=== PATIENT | female | born 1950 | race Caucasian/White ===

== ENCOUNTER 2022-05-11 18:20 | Inpatient (IN) ==
--- NOTE | 2022-05-11 18:52 | XRay Report ---
XR hip LT 2V w pelvis CLINICAL HISTORY: l hip and pelvis pain. Status post fall COMPARISON STUDY: No previous studies for comparison. TECHNIQUE: AP pelvis and 2 left hip views FINDINGS: Bones: The bones are osteopenic. There is no evidence for an acute fracture or dislocation. There is no lytic or blastic lesion. Joints: There is mild to moderate narrowing of the left hip joint space. Total hip replacement is pre sent on the right. The bones are in anatomic alignment. Soft tissues: There is no focal soft tissue abnormality. There is no radiopaque foreign body. IMPRESSION: 1. No acute osseous pathology. 2. 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 ACT 112: Negative or not required by law. Electronically signed by: Raymon Young M.D. 05/11/2022 6:51 PM
--- NOTE | 2022-05-11 19:16 | Emergency Department Note ---
Impression & Plan Hip Injury, Hip pain ED Provider Note NAME: LARA GOLDBERG AGE: 71 SEX: F : 1950 ARRIVES VIA: Ambulance INFORMANT: Patient ED PROVIDER(S): Tyrone Ro DO CHIEF COMPLAINT: Left hip pain HPI: Patient is a 71-year-old female who presents ER for above-stated complaint. Patient was cleaning the siding and was trying to get mold off when she lost her balance and fell onto her left hip. She did not hit her head or neck. No chest pain or belly pain. No other extremity pain. Pain is focal in that left hip. She is unable to stand or walk on it. Currently 3 out of 10. Tingling or numbness. ROS: See above HPI for pertinent positives & negatives. A total of 10 systems reviewed and were otherwise negative. PAST MEDICAL HISTORY:See Below PAST SURGICAL HISTORY:See Below FAMILY HISTORY:See Below SOCIAL HISTORY:See Below HOME MEDICATIONS:See Below ALLERGIES:See Below VITALS:See Below PHYSICAL EXAMINATION: GENERAL: alert, well appearing, well nourished, no distress, non-toxic HEAD: normal cephalic, atraumatic EYE EXAM: normal conjunctiva, PERRL and EOM's grossly intact OROPHARYNX: no exudate, no erythema, lips, buccal mucosa, and tongue normal and mucous membranes are moist NECK: supple, no nuchal rigidity, no adenopathy, non-tender CHEST: stable to compression anteriorly and posteriorly LUNGS: clear to auscultation. Normal chest wall mechanics HEART: no murmurs, S1 normal and S2 normal ABDOMEN: abdomen soft, non-tender, normo-active bowel sounds, no masses, no rebound or guarding. PELVIS: stable to compression anteriorly and posteriorly and over the left hip/pelvis on to palpation. BACK: Back is symmetrical on inspection and there is no deformity, no midline tenderness, no CVA tenderness. UPPER EXTREMITIES: full active and passive range of motion of all joints without tenderness to palpation LOWER EXTREMITIES: full active and passive range of motion of all joints without tenderness to palpation NEURO EXAM: Normal sensorium, cranial nerves II-XII grossly intact, normal speech, no gross weakness of arms, no gross weakness of legs. GCS: 15. MEDICAL DECISION MAKING: [Provider summary] Triage Nursing notes reviewed. Limited review of prior medical records performed Vital Signs: reviewed and remarkable for HTN Differential diagnosis: Differential diagnoses include major intracranial, cervical, spinal, thoracic, abdominal, pelvic and neurologic injury. Fracture, contusion, sprain, strain, laceration, abrasions included as well. ER treatment provided: See below Diagnostics interpreted by me: ECG: [none] Cardiac Monitoring: An order was placed for continuous cardiac monitoring. The monitor shows a rate of [] with [] rhythm. Laboratory studies: [As stated above and show below.] Imaging studies: [See below] Consultation(s): [none] Procedures: [none] [PDMP:reviewed and no issues] Critical Care: [None] Past Med/Surg History Social History Smoking Status: Never smoker Preferred Language: Lithuanian Feels Safe at Home: Yes Allergies Allergies Allergy/AdvReac Type Severity Reaction Status Date / Time No Known Allergies Allergy Verified 03/12/20 12:16 TAPE Allergy Unknown Unknown Uncoded 03/12/20 12:16 Home Meds Home Medications Medication Instructions Recorded Confirmed levothyroxine 88 mcg tablet 88 mcg PO QAM 03/12/20 03/12/20 naproxen sodium 220 mg tablet 220 mg PO Q12H PRN Pain 03/12/20 03/12/20 (Aleve) omeprazole 20 mg capsule,delayed 20 mg PO QAM 03/12/20 03/12/20 release ondansetron HCl 4 mg tablet 4 mg PO Q6H PRN Nausea 03/12/20 03/12/20 Previous Rx's Medication Instructions Recorded artificial tears with lanolin eye 1 appln ophthalmic (eye) Q6H PRN 03/12/20 ointment dry eyes #3.5 grams Results & Data (ED) Vital Signs Vital Signs - 24 hr 05/11/22 18:09 Temperature 37.1 C Temperature Source Oral Pulse Rate 65 Respiratory Rate 16 Blood Pressure 199/118 H Blood Pressure Mean 145 Pulse Oximetry 94 Sepsis Recent Fever Within 48 Hours No Sepsis New/Unexplained Change in Mental Status No Sepsis Action Taken by Nursing No Action Required Imaging Data Radiologist's Impression: Hip/Pelvis X-Ray 05/11/22 18:31 XR hip LT 2V w pelvis CLINICAL HISTORY: l hip and pelvis pain. Status post fall COMPARISON STUDY: No previous studies for comparison. TECHNIQUE: AP pelvis and 2 left hip views FINDINGS: Bones: The bones are osteopenic. There is no evidence for an acute fracture or dislocation. There is no lytic or blastic lesion. Joints: There is mild to moderate narrowing of the left hip joint space. Total hip replacement is present on the right. The bones are in anatomic alignment. Soft tissues: There is no focal soft tissue abnormality. There is no radiopaque foreign body. IMPRESSION: 1. No acute osseous pathology. 2. 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 ACT 112: Negative or not required by law. Electronically signed by: Raymon Young M.D. 05/11/2022 6:51 PM Discharge Plan Visit Data Chief Complaint: Hip Pain ED Provider: Tyrone Ro Discharge Problem: Hip Injury, Hip pain Discharge Instructions Krames/Other Patient Handouts: ED Mechanical Fall, ED Hip Contusion Activity Restrictions/Additional Instructions: Please follow up with your primary care doctor with in the next 24 hours. Any worsening of your symptoms, please return to the ED immediately. This includes any fevers greater than 100.4, worsening pain, chest pain, shortness breath, persistent nausea, vomiting, unable to eat or drink, or any other concerning signs or symptoms from your standpoint. You were found to have a blood pressure greater than 120 systolic over 90 diastolic. Due to the new Medicare guidelines, we are now recommending that you follow up with your primary care doctor in regards to this elevated blood pressure. Take Tylenol or Motrin as needed for pain. Forms [facility] Prescriptions: No Action ondansetron HCl 4 mg tablet 4 mg PO Q6H PRN (Reason: Nausea) levothyroxine 88 mcg tablet 88 mcg PO QAM naproxen sodium [Aleve] 220 mg Tablet 220 mg PO Q12H PRN (Reason: Pain) omeprazole 20 mg capsule,delayed release(DR/EC) 20 mg PO QAM artificial tears with lanolin Ointment 1 appln OP Q6H PRN (Reason: dry eyes) Qty: 3.5 0RF Referrals Referrals: Ned Donovan MD [Primary Care Provider] -
[2022-05-11] MEDS ORDERED: MoRPHine SULFATE 2 MG/ML CARP IV PRN (19:41)
[2022-05-11] MEDS ORDERED: MoRPHine SULFATE 4 MG/ML 1 ML CARP\\VIAL IV PRN ×2 (19:41→21:00)
--- NOTE | 2022-05-11 19:55 | CT Scan Report ---
CT pelvis wo con, CT hip LT wo con CLINICAL HISTORY: Status post fall with left hip pain. Previous right hip replacement 20 years ago. COMPARISON: None CT DOSE: 746.54 mGy.cm TECHNIQUE: Standard CT of the pelvis and left hip is performed without IV contrast. Multiplanar recon struction is performed. A dose lowering technique was utilized adhering to the principles of ALARA. FINDINGS: Bones: The bones are osteopenic. There is evidence for a nondisplaced fracture of the inferior ischia l pubic ramus on the left. There is no other evidence for an acute fracture or dislocation. There are no lytic or blastic lesions. Joints: There is moderate narrowing of the left hip joint space with secondary degenerative changes. Intact total hip replacement is present on the right. The bones are in anatomic alignment. Soft tissues: There is no focal soft tissue swelling. Calcified uterine fibroid is present. There are no focal fluid collections. IMPRESSION: 1. Osteopenia with evidence for a nondisplaced fracture of the inferior ischial pubic ramus on the le ft. 2. Osteoarthritis of the left hip. ACT 112: Negative or not required by law. Electronically signed by: Raymon Young M.D. 05/11/2022 7:52 PM
[2022-05-11 20:09] LABS: Basophils # (auto) 0.06 K/uL (0-0.2); Basophils % (auto) 0.3 %; Eosinophils # (auto) 0.04 K/uL (0-0.50); Eosinophils % (auto) 0.2 %; Hemoglobin 14.2 g/dl (12.0-16.0); Immature Granulocytes # (auto) 0.17 K/uL (0.00-0.02); Immature Granulocytes % (auto) 0.9 %; Lymphocytes # (auto) 0.72 K/uL (1.2-3.4); Mean Corpuscular Hemoglobin 30.7 pg (25.0-34.0); Mean Corpuscular Hgb Conc 33.8 g/dL (32.0-36.0); Mean Corpuscular Volume 90.7 fL (80.0-100.0); Mean Platelet Volume 11.2 fL (9.4-12.3); Monocytes # (auto) 0.96 K/uL (0.24-0.82); Monocytes % (auto) 5.3 %; Neutrophils % (auto) 89.3 %; Platelet Count 206 K/uL (130-400); RDW Coefficient of Variation 12.8 % (11.5-14.5); RDW Standard Deviation 41.6 fL (36.4-46.3); Red Blood Count 4.63 M/uL (3.93-5.22); White Blood Count 18.15 K/ul (4.8-10.8)
[2022-05-11 20:20] LABS: Partial Thromboplastin Ratio 0.9; Partial Thromboplastin Time 25.6 Seconds (21.0-31.0); Prothrombin Time 10.9 Seconds (9.0-12.0)
[2022-05-11 20:29] LABS: Albumin Globulin Ratio 1.6 (0.9-2); Albumin Level 4.2 gm/dl (3.4-5.0); BUN Creatinine Ratio 21.9 (10-20); Bilirubin,Total 0.6 mg/dl (0.2-1.0); Calcium 9.2 mg/dl (8.5-10.1); Creatinine Clr Calc Pharmacy 51.5 ml/min; Est GFR (African American) 68.5 ml/min; Est GFR (Non-African American) 59.1 ml/min; Globulin 2.7 gm/dl (2.5-4.0); Potassium 3.7 mmol/L (3.5-5.1); Total Protein 6.9 gm/dl (6.0-8.3)
[2022-05-11] MEDS ORDERED: LOSARTAN POTASSIUM 50 MG TAB PO STA (20:59)
[2022-05-11] MEDS ORDERED: LACTATED RINGER'S 1,000 ML IV ONE (20:59)
[2022-05-11] MEDS ORDERED: oxyCODONE HCL IR 5 MG TAB (IMMEDIATE RELEASE) PO PRN (21:00)
--- NOTE | 2022-05-11 22:24 | History & Physical Report ---
Date of Service May 11, 2022 Assessment & Plan (1) Asymptomatic hypertensive urgency: Plan: Secondary to traumatic pelvic fracture secondary to fall Medication noncompliance Mild rhabdomyolysis secondary to fall Hypothyroidism euthyroid as of last year's TSH Medical telemetry Facilitate home losartan (50 mg instead of 75 mg prescribed by PCP in consideration of dizziness symptoms) Monitor CPK response to IVF Orthopedics consult Re: Pelvic fracture PT OT eval DVT prophylaxis. Lovenox subcu DNR Patient daughter requesting updates providers. Ms. Naima Smith, contact #[phone]. Text document was generated using [employer] voice recognition software. It may contain grammatical or spelling errors. Kindly contact undersigned for clarification of any documentation item in question. Admission and Anticipated Discharge Date Admission Date: May 11, 2022 History of Present Illness Chief Complaint: Fall, left hip pain Primary Care Provider: Ned Donovan MD History obtained from patient, family, and records. Medical history significant for hypertension, hypothyroidism Lyme disease status post treatment. Patient was outside her home yesterday cleaning the siding when she lost her balance and fell landing on her left hip. No head trauma, no chest pain, no SOB, no syncope. Achy left hip pain. Patient unable to get up but able to crawl back into her home. Patient called EMS and daughter. Patient brought to the ER for evaluation. SBP 190s upon arrival at the ER. Admits to not taking her losartan for some time now because of some dizziness symptoms. 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 Allergies Allergy/AdvReac Type Severity Reaction Status Date / Time adhesive tape Allergy Unknown Verified 05/11/22 21:10 Home Medications Medication Instructions Recorded Confirmed Type artificial tears with lanolin eye 1 appln ophthalmic (eye) Q6H PRN 03/12/20 05/11/22 Rx ointment dry eyes #3.5 grams levothyroxine 88 mcg tablet 88 mcg PO QAM 03/12/20 05/11/22 History naproxen sodium 220 mg tablet 220 mg PO Q12H PRN Pain 03/12/20 05/11/22 History (Aleve) omeprazole 20 mg capsule,delayed 20 mg PO QAM 03/12/20 05/11/22 History release ondansetron HCl 4 mg tablet 4 mg PO Q6H PRN Nausea 03/12/20 05/11/22 History Past Med/Surg History Social History Smoking Status: Never smoker Hx Alcohol Use: No Hx Substance Use: No Preferred Language: Danish Communication Ability: Effective 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 Beliefs That Will Affect Care: None Current Living Situation: Alone Feels Safe at Home: Yes Safety Concerns: Feels Safe At This Time Review of Systems Review of Systems: As per HPI, all other systems reviewed and negative Physical Exam Physical Exam: GENERAL: Comfortable, pleasant, no respiratory distress SKIN: Normal color, warm HEENT: Sabula palpebral conjunctivae, no ptosis, dry buccal mucosa NECK : Supple, no tenderness CHEST : CTA, no tenderness HEART : RRR, no obvious murmurs ABDOMEN: Some distention, minimal suprapubic tenderness EXTREMITIES : Minimal LE swelling, no LE tenderness, no other conspicuous deformities noted NEUROLOGIC : Coherent, no facial asymmetry, gait and stance not assessed Results & Data Results & Data ([facility]) Vital Signs (Past 12 Hours) Vital Signs Temp Pulse Resp BP Pulse Ox 05/11/22 18:09 37.1 C 65 16 199/118 H 94 Laboratory Results Laboratory Results WBC 18.15 K/ul (4.8-10.8) H 05/11/22 20:00 RBC 4.63 M/uL (3.93-5.22) 05/11/22 20:00 Hgb 14.2 g/dl (12.0-16.0) 05/11/22 20:00 Hct 42.0 % (34.1-44.9) 05/11/22 20:00 MCV 90.7 fL (80.0-100.0) 05/11/22 20:00 MCH 30.7 pg (25.0-34.0) 05/11/22 20:00 MCHC 33.8 g/dL (32.0-36.0) 05/11/22 20:00 RDW Std Deviation 41.6 fL (36.4-46.3) 05/11/22 20:00 RDW Coeff of Dilcia 12.8 % (11.5-14.5) 05/11/22 20:00 Plt Count 206 K/uL (130-400) 05/11/22 20:00 MPV 11.2 fL (9.4-12.3) 05/11/22 20:00 Immature Gran % (Auto) 0.9 % 05/11/22 20:00 Neut % (Auto) 89.3 % 05/11/22 20:00 Lymph % (Auto) 4.0 % 05/11/22 20:00 Juab % (Auto) 5.3 % 05/11/22 20:00 Eos % (Auto) 0.2 % 05/11/22 20:00 Baso % (Auto) 0.3 % 05/11/22 20:00 Neut # (Auto) 16.20 K/uL (1.4-6.5) H 05/11/22 20:00 Lymph # (Auto) 0.72 K/uL (1.2-3.4) L 05/11/22 20:00 Juab # (Auto) 0.96 K/uL (0.24-0.82) H 05/11/22 20:00 Eos # (Auto) 0.04 K/uL (0-0.50) 05/11/22 20:00 Baso # (Auto) 0.06 K/uL (0-0.2) 05/11/22 20:00 Immature Gran # (Auto) 0.17 K/uL (0.00-0.02) H 05/11/22 20:00 PT 10.9 Seconds (9.0-12.0) 05/11/22 20:00 INR 1.0 (0.9-1.1) 05/11/22 20:00 APTT 25.6 Seconds (21.0-31.0) 05/11/22 20:00 PTT Ratio 0.9 05/11/22 20:00 Sodium 140 mmol/L (136-145) 05/11/22 20:00 Potassium 3.7 mmol/L (3.5-5.1) 05/11/22 20:00 Chloride 107 mmol/L (98-107) 05/11/22 20:00 Carbon Dioxide 26 mmol/L (21-32) 05/11/22 20:00 Anion Gap 7 (3-11) 05/11/22 20:00 BUN 21 mg/dl (6-23) 05/11/22 20:00 Creatinine 0.96 mg/dl (0.6-1.2) 05/11/22 20:00 Est Cr Clr Drug Dosing 51.5 ml/min 05/11/22 20:00 Est GFR ( Amer) 68.5 ml/min 05/11/22 20:00 Est GFR (Non-Af Amer) 59.1 ml/min 05/11/22 20:00 BUN/Creatinine Ratio 21.9 (10-20) H 05/11/22 20:00 Glucose 105 mg/dl (70-99(Fasting)) H 05/11/22 20:00 Calcium 9.2 mg/dl (8.5-10.1) 05/11/22 20:00 Total Bilirubin 0.6 mg/dl (0.2-1.0) 05/11/22 20:00 AST 25 U/L (13-39) 05/11/22 20:00 ALT 19 U/L (7-52) 05/11/22 20:00 Alkaline Phosphatase 82 U/L (34-104) 05/11/22 20:00 Total Creatine Kinase 264 U/L (26-192) H 05/11/22 20:00 Total Protein 6.9 gm/dl (6.0-8.3) 05/11/22 20:00 Albumin 4.2 gm/dl (3.4-5.0) 05/11/22 20:00 Globulin 2.7 gm/dl (2.5-4.0) 05/11/22 20:00 Albumin/Globulin Ratio 1.6 (0.9-2) 05/11/22 20:00 Procalcitonin < 0.05 ng/ml (0-0.5) 05/11/22 20:00 SARS-CoV-2, RNA, NAAT NEGATIVE (NEGATIVE) 05/11/22 20:00 Impressions Hip/Pelvis X-Ray 05/11/22 18:31 XR hip LT 2V w pelvis CLINICAL HISTORY: l hip and pelvis pain. Status post fall COMPARISON STUDY: No previous studies for comparison. TECHNIQUE: AP pelvis and 2 left hip views FINDINGS: Bones: The bones are osteopenic. There is no evidence for an acute fracture or dislocation. There is no lytic or blastic lesion. Joints: There is mild to moderate narrowing of the left hip joint space. Total hip replacement is present on the right. The bones are in anatomic alignment. Soft tissues: There is no focal soft tissue abnormality. There is no radiopaque foreign body. IMPRESSION: 1. No acute osseous pathology. 2. 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 ACT 112: Negative or not required by law. Electronically signed by: Raymon Young M.D. 05/11/2022 6:[address] 05/11/22 19:16 CT pelvis wo con, CT hip LT wo con CLINICAL HISTORY: Status post fall with left hip pain. Previous right hip replacement 20 years ago. COMPARISON: None CT DOSE: 746.54 mGy.cm TECHNIQUE: Standard CT of the pelvis and left hip is performed without IV contrast. Multiplanar reconstruction is performed. A dose lowering technique was utilized adhering to the principles of ALARA. FINDINGS: Bones: The bones are osteopenic. There is evidence for a nondisplaced fracture of the inferior ischial pubic ramus on the left. There is no other evidence for an acute fracture or dislocation. There are no lytic or blastic lesions. Joints: There is moderate narrowing of the left hip joint space with secondary degenerative changes. Intact total hip replacement is present on the right. The bones are in anatomic alignment. Soft tissues: There is no focal soft tissue swelling. Calcified uterine fibroid is present. There are no focal fluid collections. IMPRESSION: 1. Osteopenia with evidence for a nondisplaced fracture of the inferior ischial pubic ramus on the left. 2. Osteoarthritis of the left hip. ACT 112: Negative or not required by law. Electronically signed by: Raymon Young M.D. 05/11/2022 7:[address] 05/11/22 19:16 CT pelvis wo con, CT hip LT wo con CLINICAL HISTORY: Status post fall with left hip pain. Previous right hip replacement 20 years ago. COMPARISON: None CT DOSE: 746.54 mGy.cm TECHNIQUE: Standard CT of the pelvis and left hip is performed without IV contrast. Multiplanar reconstruction is performed. A dose lowering technique was utilized adhering to the principles of ALARA. FINDINGS: Bones: The bones are osteopenic. There is evidence for a nondisplaced fracture of the inferior ischial pubic ramus on the left. There is no other evidence for an acute fracture or dislocation. There are no lytic or blastic lesions. Joints: There is moderate narrowing of the left hip joint space with secondary degenerative changes. Intact total hip replacement is present on the right. The bones are in anatomic alignment. Soft tissues: There is no focal soft tissue swelling. Calcified uterine fibroid is present. There are no focal fluid collections. IMPRESSION: 1. Osteopenia with evidence for a nondisplaced fracture of the inferior ischial pubic ramus on the left. 2. Osteoarthritis of the left hip. ACT 112: Negative or not required by law. Electronically signed by: Raymon Young M.D. 05/11/2022 7:52 PM Diagnostic Findings EKG as per my interpretation :Rate 90, NSR, LAD, LAFB, LVH, no ischemia Code Status & VTE Plan VTE Prophylaxis Plan VTE Prophylaxis will be ordered: Yes
[2022-05-11] MEDS ORDERED: ACETAMINOPHEN 325 MG TAB PO PRN (22:32)
[2022-05-12] MEDS: LACTATED RINGER'S 1,000 ML IV SCH ×2 (02:06→13:32)
[2022-05-12] MEDS: LEVOTHYROXINE SODIUM 88 MCG TABLET PO SCH (05:11)
[2022-05-12 05:28] LABS: Appearance Urine Clear (Clear); Bilirubin Urine Negative (Negative); Blood Urine Negative (Negative); Color Urine Yellow; Epithelial Cell Urine Auto >30 /lpf (0-5); Glucose Urine UA Negative (Negative); Ketones Urine Trace (Negative); Leukocyte Esterase Urine 1+ (Negative); Nitrite Urine Negative (Negative); Protein Urine Negative (Negative); Urobilinogen Urine Negative (Negative); pH Urine 5.5 (4.5-7.5)
[2022-05-12 06:06] LABS: Basophils # (auto) 0.04 K/uL (0-0.2); Basophils % (auto) 0.5 %; Eosinophils % (auto) 1.2 %; Hemoglobin 12.6 g/dl (12.0-16.0); Immature Granulocytes # (auto) 0.04 K/uL (0.00-0.02); Immature Granulocytes % (auto) 0.5 %; Lymphocytes # (auto) 0.95 K/uL (1.2-3.4); Lymphocytes % (auto) 11.1 %; Mean Corpuscular Hemoglobin 30.7 pg (25.0-34.0); Mean Corpuscular Hgb Conc 34.1 g/dL (32.0-36.0); Mean Platelet Volume 10.8 fL (9.4-12.3); Monocytes # (auto) 0.54 K/uL (0.24-0.82); Monocytes % (auto) 6.3 %; Neutrophils # (auto) 6.88 K/uL (1.4-6.5); Neutrophils % (auto) 80.4 %; Platelet Count 156 K/uL (130-400); RDW Coefficient of Variation 12.7 % (11.5-14.5); Red Blood Count 4.11 M/uL (3.93-5.22); White Blood Count 8.55 K/ul (4.8-10.8)
[2022-05-12 06:16] LABS: Mucus Urine Present (None Prsent)
[2022-05-12 06:17] LABS: Bacteria Urine Automated 1+ (Negative); Cast Urine Automated 0 /lpf (0-5); RBC Urine Automated 0-4 /hpf (0-4)
[2022-05-12 06:32] LABS: BUN Creatinine Ratio 18.8 (10-20); Calcium 8.6 mg/dl (8.5-10.1); Creatinine Clr Calc Pharmacy 59.8 ml/min; Est GFR (African American) 85.4 ml/min; Est GFR (Non-African American) 73.7 ml/min; Potassium 3.8 mmol/L (3.5-5.1)
--- NOTE | 2022-05-12 09:35 | Electrocardiogram Report ---
Test Reason : Blood Pressure : / mmHG Vent. Rate : 090 BPM Atrial Rate : 090 BPM P-R Int : 188 ms QRS Dur : 092 ms QT Int : 366 ms P-R-T Axes : 046 -43 032 degrees QTc Int : 447 ms Normal sinus rhythm Left axis deviation Moderate voltage criteria for LVH, may be normal variant Abnormal ECG No previous ECGs available Confirmed by Phillip Ward ([id number]) on 05/12/2022 9:34:36 AM Referred By: Ned Donovan Confirmed By:Phillip Ward
[2022-05-12] MEDS: PROMETHAZINE HCL 12.5 MG in SODIUM CHLORIDE 0.9% 50 ML IV PRN ×2 (09:53→23:26)
[2022-05-12] MEDS: PANTOprazole 40 MG TAB PO SCH (09:58)
[2022-05-12] MEDS: ENOXAPARIN INJ 40 MG/0.4 ML SYR SQ SCH (09:58)
--- NOTE | 2022-05-12 12:49 | Hospitalist Progress Note ---
Date of Service May 12, 2022 Assessment & Plan (1) Asymptomatic hypertensive urgency: (2) Pelvic fracture: (3) Rhabdomyolysis: (4) Fall: (5) HTN (hypertension): (6) Hypothyroidism: Plan This is a 71yr old F who has a significant PMH of HTN, hypothyroidism, hx of R BRO who presented to ED on 05/11/22 after sustaining a mechanical fall. CT a/p: Nondisplaced fracture of the inferior ischial pubic ramus on the left. Mechanical Fall Nondisplaced fracture of inferior ischial pubic ramus fx on Left admitted to med/surg awaiting ortho eval PT/OT to determine needs -pt lives alone with a few steps to enter will change narcotic from oxycodone to hydrocodone/APAP due to nausea Mild rhabdomyolysis secondary to fall CPK 279 continue gentle hydration repeat labs in a.m. Hypothyroidism euthyroid as of last year's TSH continue levothyroxine Systolic Murmur noted on exam was a 2/6 NEVA RUSB, pt denies knowledge of previous murmur Echo from 2019 revealed mild AV sclerosis, grade 1 DD, preserved EF recommend outpatient follow up echo to eval aortic valve HTN Asymptomatic HTN urgency on presentation per admitting notes pt had discontinued losartan/noncompliant Resumed on admission at a reduced dose of 50mg daily, monitor and titrate Abnormal Urinalysis on admission, pt asymptomatic, afebrile, wbc wnl today was 18k on admission, likely 2/2 to trauma await urine culture DVT ppx: SQ Lovenox Dispo: med/surg, awaiting ortho eval and PT/OT DNR/DNI PCP: Venus Pt was seen and examined in collaboration with Dr. Cash, please see addendum Patient daughter requesting updates providers. Ms. Naima Smith, contact #[phone]. Admission and Anticipated Discharge Date Admission Date: May 11, 2022 Supervising Physician Co-Signing Physician Notes Pt was seen and examined. Agreed with Ada MEDINA exam, assessment and plan. 71yr old F who has a significant PMH of HTN, hypothyroidism, hx of R BRO who presented to ED on 05/11/22 after sustaining a mechanical fall. CT a/p showed n ondisplaced fracture of the inferior ischial pubic ramus on the left. Continue pain control. Continue PT/OT eval. Consider inpatient rehab. Fall precaution. MD Shreya Subjective Pt was seen and examined in room 387-2. Follow up fall, pelvic fx. States when she sits still she has no pain, but bed mobility causes significant amount of pain. She complains of being nauseated from pain medications, stating previously didn't tolerate them in the past. She denies any f/c/s, chest pain, sob, cough, emesis, abd pain, change in bowel or urinary habits. Appetite decreased this a.m. due to nausea. Review of Systems Review of Systems: All systems reviewed & are unremarkable except as noted in Subjective Physical Exam Physical Exam: Gen: WD/WN, F, NAD, A&O x3 HEENT: Normocephalic, atraumatic, conjunctivae moist, sclerae anicteric, mucous membranes moist. Lung: Clear to Auscultation bilaterally, no wheezes/rales/rhonchi Heart: Regular rate, regular rhythm, 2/6 NEVA noted RUSB, no rubs, or gallops Abdomen: Soft, NT, ND +BS x 4 Extremities: No edema Skin: Warm, no rash, negative turgor. Results & Data Results & Data ([facility]) Vital Signs (Past 12 Hours) Vital Signs Temp Pulse Resp BP Pulse Ox O2 Del Method 05/12/22 07:29 37.3 C 88 16 146/81 H 93 Room Air 05/12/22 02:32 37.1 C 93 H 18 158/89 H 93 Room Air Diagnostic Findings Hip/Pelvis X-Ray 05/11/22 18:31 XR hip LT 2V w pelvis CLINICAL HISTORY: l hip and pelvis pain. Status post fall COMPARISON STUDY: No previous studies for comparison. TECHNIQUE: AP pelvis and 2 left hip views FINDINGS: Bones: The bones are osteopenic. There is no evidence for an acute fracture or dislocation. There is no lytic or blastic lesion. Joints: There is mild to moderate narrowing of the left hip joint space. Total hip replacement is present on the right. The bones are in anatomic alignment. Soft tissues: There is no focal soft tissue abnormality. There is no radiopaque foreign body. IMPRESSION: 1. No acute osseous pathology. 2. 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 ACT 112: Negative or not required by law. Electronically signed by: Raymon Young M.D. 05/11/2022 6:[address] 05/11/22 19:16 CT pelvis wo con, CT hip LT wo con CLINICAL HISTORY: Status post fall with left hip pain. Previous right hip replacement 20 years ago. COMPARISON: None CT DOSE: 746.54 mGy.cm TECHNIQUE: Standard CT of the pelvis and left hip is performed without IV contrast. Multiplanar reconstruction is performed. A dose lowering technique was utilized adhering to the principles of ALARA. FINDINGS: Bones: The bones are osteopenic. There is evidence for a nondisplaced fracture of the inferior ischial pubic ramus on the left. There is no other evidence for an acute fracture or dislocation. There are no lytic or blastic lesions. Joints: There is moderate narrowing of the left hip joint space with secondary degenerative changes. Intact total hip replacement is present on the right. The bones are in anatomic alignment. Soft tissues: There is no focal soft tissue swelling. Calcified uterine fibroid is present. There are no focal fluid collections. IMPRESSION: 1. Osteopenia with evidence for a nondisplaced fracture of the inferior ischial pubic ramus on the left. 2. Osteoarthritis of the left hip. ACT 112: Negative or not required by law. Electronically signed by: Raymon Young M.D. 05/11/2022 7:[address] 05/11/22 19:16 CT pelvis wo con, CT hip LT wo con CLINICAL HISTORY: Status post fall with left hip pain. Previous right hip replacement 20 years ago. COMPARISON: None CT DOSE: 746.54 mGy.cm TECHNIQUE: Standard CT of the pelvis and left hip is performed without IV contrast. Multiplanar reconstruction is performed. A dose lowering technique was utilized adhering to the principles of ALARA. FINDINGS: Bones: The bones are osteopenic. There is evidence for a nondisplaced fracture of the inferior ischial pubic ramus on the left. There is no other evidence for an acute fracture or dislocation. There are no lytic or blastic lesions. Joints: There is moderate narrowing of the left hip joint space with secondary degenerative changes. Intact total hip replacement is present on the right. The bones are in anatomic alignment. Soft tissues: There is no focal soft tissue swelling. Calcified uterine fibroid is present. There are no focal fluid collections. IMPRESSION: 1. Osteopenia with evidence for a nondisplaced fracture of the inferior ischial pubic ramus on the left. 2. Osteoarthritis of the left hip. ACT 112: Negative or not required by law. Electronically signed by: Raymon Young M.D. 05/11/2022 7:52 PM Medications Administered Current Inpatient Medications Acetaminophen (Acetaminophen 325 Mg Tab) 650 mg PO Q4H PRN PRN Reason: Pain or Fever Stop: 06/10/22 22:31 Hydrocodone Bitart/Acetaminophen (Hydrocodone/Acetamophen 5/325mg Tab) 1 tab PO Q6H PRN PRN Reason: pain >or = 6/10 Stop: 05/26/22 13:09 Enoxaparin Sodium (Enoxaparin Inj 40 Mg/0.4 Ml Syr) 40 mg SQ QAM [facility] Stop: 06/11/22 08:59 Last Admin: 05/12/22 09:58 Dose: 40 mg Promethazine HCl 12.5 mg/ (Sodium Chloride) 50.5 mls @ 202 mls/hr IV Q6H PRN PRN Reason: Nausea And Vomiting Stop: 06/10/22 20:59 Last Infusion: 05/12/22 10:13 Dose: Infused Lactated Ringer's (Lr) 1,000 mls @ 80 mls/hr IV .[id number] [facility] Stop: 05/13/22 01:29 Last Admin: 05/12/22 02:06 Dose: 80 mls/hr Levothyroxine Sodium (Levothyroxine Sodium 88 Mcg Tablet) 88 mcg PO DAILYBB [facility] Stop: 06/11/22 06:29 Last Admin: 05/12/22 05:11 Dose: 88 mcg Losartan Potassium (Losartan Potassium 50 Mg Tab) 50 mg PO HS [facility] Stop: 06/11/22 20:59 Morphine Sulfate (Morphine Sulfate 4 Mg/Ml 1 Ml Carp\Vial) 4 mg IV Q4H PRN PRN Reason: Pain Stop: 05/25/22 20:59 Pantoprazole Sodium (Pantoprazole 40 Mg Tab) 40 mg PO DAILY [facility] Stop: 06/11/22 08:59 Last Admin: 05/12/22 09:58 Dose: 40 mg
[2022-05-12] MEDS ORDERED: HYDROCODONE/ACETAMOPHEN 5/325MG TAB PO PRN (13:10)
--- NOTE | 2022-05-12 18:23 | Orthopedic Consultation ---
Date of Consultation May 12, 2022 Assessment & Plan (1) Pelvic fracture: Imaging demonstrates nondisplaced fractures of the inferior pubic ramus as well as left sacral memo and superior pubic ramus extending the acetabulum. Discussed nonoperative management. Patient can be toe-touch weightbearing and progress to partial/50% weightbearing as her pain allows on her left lower extremity. Will need walker. May need rehab stay. All questions were answered. Patient can follow-up with Dr. Gibbs's office in 2 weeks for follow-up x-rays and reevaluation. She can call [phone] for an appointment. Thank you for this consultation. History of Present Illness Reason for Consultation: Left pelvis fracture Requesting Physician: Dr. Bucio Attending Physician: Nery Cash MD History of Present Illness 71-year-old female with past medical history significant for hypertension, hypothyroidism who presented to the emergency department after suffering a fall while cleaning the outside of her home. She slipped and fell. She landed on her left hip. She had acute onset of pain. She is brought to the emergency department and CT scan and x-rays of her hip and pelvis are obtained. Imaging demonstrated a nondisplaced fracture of the inferior pubic ramus as well as f ractures of her left sacral memo and left superior pubic ramus extending to the acetabulum. We have been asked to see this patient for her left pelvis fractures. Allergies Allergy/AdvReac Type Severity Reaction Status Date / Time adhesive tape Allergy Unknown Verified 05/11/22 21:10 Home Medications Medication Instructions Recorded Confirmed Type artificial tears with lanolin eye 1 appln ophthalmic (eye) Q6H PRN 03/12/20 05/11/22 Rx ointment dry eyes #3.5 grams levothyroxine 88 mcg tablet 88 mcg PO QAM 03/12/20 05/11/22 History naproxen sodium 220 mg tablet 220 mg PO Q12H PRN Pain 03/12/20 05/11/22 History (Aleve) omeprazole 20 mg capsule,delayed 20 mg PO QAM 03/12/20 05/11/22 History release ondansetron HCl 4 mg tablet 4 mg PO Q6H PRN Nausea 03/12/20 05/11/22 History losartan 25 mg tablet 25 mg PO DAILY 05/12/22 05/12/22 History losartan 50 mg tablet 50 mg PO DAILY 05/12/22 05/12/22 History Patient History Medical History (Updated 05/12/22 @ 13:23 by Ada Chapa PA-C) HTN (hypertension) Hypothyroidism Lyme disease with bells palsy Psoriasis Surgical History (Updated 05/12/22 @ 12:53 by Ada Chapa PA-C) History of hip replacement R, 1999 History of nasal surgery 2/2 to fracture Family History (Updated 05/12/22 @ 12:53 by Ada Chapa PA-C) Mother , 72 Stroke brainstem stroke age 72 Social History (Updated 05/12/22 @ 12:54 by Ada Chapa PA-C) Smoking Status: Never smoker Hx Alcohol Use: No Hx Substance Use: No Preferred Language: [place]an Communication Ability: Effective [employer] Required: No Beliefs That Will Affect Care: None Feels Safe at Home: Yes Safety Concerns: Feels Safe At This Time Assistive Devices: None Review of Systems Review of Systems: All systems reviewed & are unremarkable except as noted in Subjective Physical Exam Constitutional: WD/WN, vitals as above Respiratory: normal respiratory effort; no respiratory distress Cardiovascular: Rate/Rhythm: regular rate and regular rhythm Cap refill less than 3 seconds Musculoskeletal: Left hip: Tenderness anterior aspect the hip with deep palpation in region of her pubic bone. No tenderness about the sacrum. No lateral hip tenderness. Mild pain with hip internal rotation passively. Has pain-free hip flexion. Able to do a straight leg raise. Normal knee range of motion. Skin: no rashes, warm and dry Neurologic: Sensation distally intact Psychiatric: A+Ox3, euthymic affect Results & Data ([facility]) Vital Signs (Past 12 Hours) Vital Signs Temp Pulse Resp BP BP Pulse Ox O2 Del Method 05/12/22 15:29 37.4 C 92 H 16 146/84 H 91 Room Air 05/12/22 07:29 37.3 C 88 16 146/81 H 93 Room Air Laboratory Results Lab Results 05/11/22 05/11/22 05/11/22 Range/Units 20:00 20:00 20:00 WBC 18.15 H (4.8-10.8) K/ul RBC 4.63 (3.93-5.22) M/uL Hgb 14.2 (12.0-16.0) g/dl Hct 42.0 (34.1-44.9) % MCV 90.7 (80.0-100.0) fL MCH 30.7 (25.0-34.0) pg MCHC 33.8 (32.0-36.0) g/dL RDW Std Deviation 41.6 (36.4-46.3) fL RDW Coeff of Dilcia 12.8 (11.5-14.5) % Plt Count 206 (130-400) K/uL MPV 11.2 (9.4-12.3) fL Immature Gran % (Auto) 0.9 % Neut % (Auto) 89.3 % Lymph % (Auto) 4.0 % [place] % (Auto) 5.3 % Eos % (Auto) 0.2 % Baso % (Auto) 0.3 % Neut # (Auto) 16.20 H (1.4-6.5) K/uL Lymph # (Auto) 0.72 L (1.2-3.4) K/uL [place] # (Auto) 0.96 H (0.24-0.82) K/uL Eos # (Auto) 0.04 (0-0.50) K/uL Baso # (Auto) 0.06 (0-0.2) K/uL Immature Gran # (Auto) 0.17 H (0.00-0.02) K/uL PT 10.9 (9.0-12.0) Seconds INR 1.0 (0.9-1.1) APTT 25.6 (21.0-31.0) Seconds PTT Ratio 0.9 Sodium 140 (136-145) mmol/L Potassium 3.7 (3.5-5.1) mmol/L Chloride 107 (98-107) mmol/L Carbon Dioxide 26 (21-32) mmol/L Anion Gap 7 (3-11) BUN 21 (6-23) mg/dl Creatinine 0.96 (0.6-1.2) mg/dl Est Cr Clr Drug Dosing 51.5 ml/min Est GFR ( Amer) 68.5 ml/min Est GFR (Non-Af Amer) 59.1 ml/min BUN/Creatinine Ratio 21.9 H (10-20) Glucose 105 H (70-99(Fasting)) mg/dl Calcium 9.2 (8.5-10.1) mg/dl Total Bilirubin 0.6 (0.2-1.0) mg/dl AST 25 (13-39) U/L ALT 19 (7-52) U/L Alkaline Phosphatase 82 (34-104) U/L Total Creatine Kinase (26-192) U/L Total Protein 6.9 (6.0-8.3) gm/dl Albumin 4.2 (3.4-5.0) gm/dl Globulin 2.7 (2.5-4.0) gm/dl Albumin/Globulin Ratio 1.6 (0.9-2) Procalcitonin (0-0.5) ng/ml TSH (0.300-4.500) uIu/ml Urine Color Urine Appearance (Clear) Urine pH (4.5-7.5) Ur Specific [place] (1.000-1.030) Urine Protein (Negative) Urine Glucose (UA) (Negative) Urine Ketones (Negative) Urine Blood (Negative) Urine Nitrite (Negative) Urine Bilirubin (Negative) Urine Urobilinogen (Negative) Ur Leukocyte Esterase (Negative) Urine WBC (Auto) (0-5) /hpf Urine RBC (Auto) (0-4) /hpf U Hyaline Cast (Auto) (0-5) /lpf U Epithel Cells (Auto) (0-5) /lpf Urine Bacteria (Auto) (Negative) Urine Mucus (None Prsent) Urine Yeast (None Prsent) SARS-CoV-2, RNA, NAAT (NEGATIVE) 05/11/22 05/11/22 05/11/22 Range/Units 20:00 20:00 20:00 WBC (4.8-10.8) K/ul RBC (3.93-5.22) M/uL Hgb (12.0-16.0) g/dl Hct (34.1-44.9) % MCV (80.0-100.0) fL MCH (25.0-34.0) pg MCHC (32.0-36.0) g/dL RDW Std Deviation (36.4-46.3) fL RDW Coeff of Dilcia (11.5-14.5) % Plt Count (130-400) K/uL MPV (9.4-12.3) fL Immature Gran % (Auto) % Neut % (Auto) % Lymph % (Auto) % [place] % (Auto) % Eos % (Auto) % Baso % (Auto) % Neut # (Auto) (1.4-6.5) K/uL Lymph # (Auto) (1.2-3.4) K/uL [place] # (Auto) (0.24-0.82) K/uL Eos # (Auto) (0-0.50) K/uL Baso # (Auto) (0-0.2) K/uL Immature Gran # (Auto) (0.00-0.02) K/uL PT (9.0-12.0) Seconds INR (0.9-1.1) APTT (21.0-31.0) Seconds PTT Ratio Sodium (136-145) mmol/L Potassium (3.5-5.1) mmol/L Chloride (98-107) mmol/L Carbon Dioxide (21-32) mmol/L Anion Gap (3-11) BUN (6-23) mg/dl Creatinine (0.6-1.2) mg/dl Est Cr Clr Drug Dosing ml/min Est GFR ( Amer) ml/min Est GFR (Non-Af Amer) ml/min BUN/Creatinine Ratio (10-20) Glucose (70-99(Fasting)) mg/dl Calcium (8.5-10.1) mg/dl Total Bilirubin (0.2-1.0) mg/dl AST (13-39) U/L ALT (7-52) U/L Alkaline Phosphatase (34-104) U/L Total Creatine Kinase 264 H (26-192) U/L Total Protein (6.0-8.3) gm/dl Albumin (3.4-5.0) gm/dl Globulin (2.5-4.0) gm/dl Albumin/Globulin Ratio (0.9-2) Procalcitonin < 0.05 (0-0.5) ng/ml TSH (0.300-4.500) uIu/ml Urine Color Urine Appearance (Clear) Urine pH (4.5-7.5) Ur Specific [place] (1.000-1.030) Urine Protein (Negative) Urine Glucose (UA) (Negative) Urine Ketones (Negative) Urine Blood (Negative) Urine Nitrite (Negative) Urine Bilirubin (Negative) Urine Urobilinogen (Negative) Ur Leukocyte Esterase (Negative) Urine WBC (Auto) (0-5) /hpf Urine RBC (Auto) (0-4) /hpf U Hyaline Cast (Auto) (0-5) /lpf U Epithel Cells (Auto) (0-5) /lpf Urine Bacteria (Auto) (Negative) Urine Mucus (None Prsent) Urine Yeast (None Prsent) SARS-CoV-2, RNA, NAAT NEGATIVE (NEGATIVE) 05/11/22 05/12/22 05/12/22 Range/Units 20:00 05:54 05:54 WBC 8.55 (4.8-10.8) K/ul RBC 4.11 (3.93-5.22) M/uL Hgb 12.6 (12.0-16.0) g/dl Hct 37.0 (34.1-44.9) % MCV 90.0 (80.0-100.0) fL MCH 30.7 (25.0-34.0) pg MCHC 34.1 (32.0-36.0) g/dL RDW Std Deviation 42.0 (36.4-46.3) fL RDW Coeff of Dilcia 12.7 (11.5-14.5) % Plt Count 156 (130-400) K/uL MPV 10.8 (9.4-12.3) fL Immature Gran % (Auto) 0.5 % Neut % (Auto) 80.4 % Lymph % (Auto) 11.1 % [place] % (Auto) 6.3 % Eos % (Auto) 1.2 % Baso % (Auto) 0.5 % Neut # (Auto) 6.88 H (1.4-6.5) K/uL Lymph # (Auto) 0.95 L (1.2-3.4) K/uL [place] # (Auto) 0.54 (0.24-0.82) K/uL Eos # (Auto) 0.10 (0-0.50) K/uL Baso # (Auto) 0.04 (0-0.2) K/uL Immature Gran # (Auto) 0.04 H (0.00-0.02) K/uL PT (9.0-12.0) Seconds INR (0.9-1.1) APTT (21.0-31.0) Seconds PTT Ratio Sodium 138 (136-145) mmol/L Potassium 3.8 (3.5-5.1) mmol/L Chloride 105 (98-107) mmol/L Carbon Dioxide 28 (21-32) mmol/L Anion Gap 5 (3-11) BUN 15 (6-23) mg/dl Creatinine 0.80 (0.6-1.2) mg/dl Est Cr Clr Drug Dosing 59.8 ml/min Est GFR ( Amer) 85.4 ml/min Est GFR (Non-Af Amer) 73.7 ml/min BUN/Creatinine Ratio 18.8 (10-20) Glucose 106 H (70-99(Fasting)) mg/dl Calcium 8.6 (8.5-10.1) mg/dl Total Bilirubin (0.2-1.0) mg/dl AST (13-39) U/L ALT (7-52) U/L Alkaline Phosphatase (34-104) U/L Total Creatine Kinase 279 H (26-192) U/L Total Protein (6.0-8.3) gm/dl Albumin (3.4-5.0) gm/dl Globulin (2.5-4.0) gm/dl Albumin/Globulin Ratio (0.9-2) Procalcitonin (0-0.5) ng/ml TSH 2.602 (0.300-4.500) uIu/ml Urine Color Urine Appearance (Clear) Urine pH (4.5-7.5) Ur Specific [place] (1.000-1.030) Urine Protein (Negative) Urine Glucose (UA) (Negative) Urine Ketones (Negative) Urine Blood (Negative) Urine Nitrite (Negative) Urine Bilirubin (Negative) Urine Urobilinogen (Negative) Ur Leukocyte Esterase (Negative) Urine WBC (Auto) (0-5) /hpf Urine RBC (Auto) (0-4) /hpf U Hyaline Cast (Auto) (0-5) /lpf U Epithel Cells (Auto) (0-5) /lpf Urine Bacteria (Auto) (Negative) Urine Mucus (None Prsent) Urine Yeast (None Prsent) SARS-CoV-2, RNA, NAAT (NEGATIVE) 05/12/22 Range/Units Unknown WBC (4.8-10.8) K/ul RBC (3.93-5.22) M/uL Hgb (12.0-16.0) g/dl Hct (34.1-44.9) % MCV (80.0-100.0) fL MCH (25.0-34.0) pg MCHC (32.0-36.0) g/dL RDW Std Deviation (36.4-46.3) fL RDW Coeff of Dilcia (11.5-14.5) % Plt Count (130-400) K/uL MPV (9.4-12.3) fL Immature Gran % (Auto) % Neut % (Auto) % Lymph % (Auto) % [place] % (Auto) % Eos % (Auto) % Baso % (Auto) % Neut # (Auto) (1.4-6.5) K/uL Lymph # (Auto) (1.2-3.4) K/uL [place] # (Auto) (0.24-0.82) K/uL Eos # (Auto) (0-0.50) K/uL Baso # (Auto) (0-0.2) K/uL Immature Gran # (Auto) (0.00-0.02) K/uL PT (9.0-12.0) Seconds INR (0.9-1.1) APTT (21.0-31.0) Seconds PTT Ratio Sodium (136-145) mmol/L Potassium (3.5-5.1) mmol/L Chloride (98-107) mmol/L Carbon Dioxide (21-32) mmol/L Anion Gap (3-11) BUN (6-23) mg/dl Creatinine (0.6-1.2) mg/dl Est Cr Clr Drug Dosing ml/min Est GFR ( Amer) ml/min Est GFR (Non-Af Amer) ml/min BUN/Creatinine Ratio (10-20) Glucose (70-99(Fasting)) mg/dl Calcium (8.5-10.1) mg/dl Total Bilirubin (0.2-1.0) mg/dl AST (13-39) U/L ALT (7-52) U/L Alkaline Phosphatase (34-104) U/L Total Creatine Kinase (26-192) U/L Total Protein (6.0-8.3) gm/dl Albumin (3.4-5.0) gm/dl Globulin (2.5-4.0) gm/dl Albumin/Globulin Ratio (0.9-2) Procalcitonin (0-0.5) ng/ml TSH (0.300-4.500) uIu/ml Urine Color Yellow Urine Appearance Clear (Clear) Urine pH 5.5 (4.5-7.5) Ur Specific [place] 1.020 (1.000-1.030) Urine Protein Negative (Negative) Urine Glucose (UA) Negative (Negative) Urine Ketones Trace H (Negative) Urine Blood Negative (Negative) Urine Nitrite Negative (Negative) Urine Bilirubin Negative (Negative) Urine Urobilinogen Negative (Negative) Ur Leukocyte Esterase 1+ H (Negative) Urine WBC (Auto) 10-30 H (0-5) /hpf Urine RBC (Auto) 0-4 (0-4) /hpf U Hyaline Cast (Auto) 0 (0-5) /lpf U Epithel Cells (Auto) >30 H (0-5) /lpf Urine Bacteria (Auto) 1+ H (Negative) Urine Mucus Present A (None Prsent) Urine Yeast Present A (None Prsent) SARS-CoV-2, RNA, NAAT (NEGATIVE) Diagnostic Findings ADDENDUM ADDENDUM: There are also fractures of the left sacral ala, as well as the superior left pubic ramus which extends to the anterior wall of the left acetabulum. Electronically signed by: Td Escobedo M.D. 05/11/2022 8:[address] pelvis wo con, CT hip LT wo con CLINICAL HISTORY: Status post fall with left hip pain. Previous right hip replacement 20 years ago. COMPARISON: None CT DOSE: 746.54 mGy.cm TECHNIQUE: Standard CT of the pelvis and left hip is performed without IV contrast. Multiplanar reconstruction is performed. A dose lowering technique was utilized adhering to the principles of ALARA. FINDINGS: Bones: The bones are osteopenic. There is evidence for a nondisplaced fracture of the inferior ischial pubic ramus on the left. There is no other evidence for an acute fracture or dislocation. There are no lytic or blastic lesions. Joints: There is moderate narrowing of the left hip joint space with secondary degenerative changes. Intact total hip replacement is present on the right. The bones are in anatomic alignment. Soft tissues: There is no focal soft tissue swelling. Calcified uterine fibroid is present. There are no focal fluid collections. IMPRESSION: 1. Osteopenia with evidence for a nondisplaced fracture of the inferior ischial pubic ramus on the left. 2. Osteoarthritis of the left hip.
[2022-05-12] MEDS: LOSARTAN POTASSIUM 50 MG TAB PO SCH (20:41)
[2022-05-13] MEDS: MELATONIN 3 MG TAB PO PRN ×2 (01:20→21:33)
[2022-05-13] MEDS: LEVOTHYROXINE SODIUM 88 MCG TABLET PO SCH (06:12)
[2022-05-13] MEDS: PANTOprazole 40 MG TAB PO SCH (08:24)
[2022-05-13] MEDS: ENOXAPARIN INJ 40 MG/0.4 ML SYR SQ SCH (08:24)
[2022-05-13 08:31] LABS: Hematocrit (blood only) 40.3 % (34.1-44.9); Hemoglobin 13.9 g/dl (12.0-16.0); Mean Corpuscular Hemoglobin 30.9 pg (25.0-34.0); Mean Corpuscular Hgb Conc 34.5 g/dL (32.0-36.0); Mean Corpuscular Volume 89.6 fL (80.0-100.0); Mean Platelet Volume 10.8 fL (9.4-12.3); Platelet Count 156 K/uL (130-400); RDW Coefficient of Variation 12.7 % (11.5-14.5); RDW Standard Deviation 41.6 fL (36.4-46.3); White Blood Count 11.11 K/ul (4.8-10.8)
[2022-05-13 09:05] LABS: BUN Creatinine Ratio 11.9 (10-20); Calcium 8.9 mg/dl (8.5-10.1); Creatinine Clr Calc Pharmacy 56.9 ml/min; Est GFR (African American) 80.5 ml/min; Est GFR (Non-African American) 69.4 ml/min; Potassium 3.8 mmol/L (3.5-5.1)
[2022-05-13] MEDS ORDERED: FAMOTIDINE 20 MG in SYRINGE 3 ML IV STA (10:27)
[2022-05-13] MEDS: ONDANSETRON INJ 2 MG/ML 2 ML VIAL IV SCH ×3 (11:18→21:34)
[2022-05-13] MEDS ORDERED: SODIUM CHLORIDE 0.9% 1000ML 1,000 ML IV SCH (12:30)
--- NOTE | 2022-05-13 12:59 | Hospitalist Progress Note ---
Date of Service May 13, 2022 Assessment & Plan (1) Asymptomatic hypertensive urgency: (2) Pelvic fracture: (3) Rhabdomyolysis: (4) Fall: (5) HTN (hypertension): (6) Hypothyroidism: Plan This is a 71yr old F who has a significant PMH of HTN, hypothyroidism, hx of R BRO who presented to ED on 05/11/22 after sustaining a mechanical fall. CT a/p: Nondisplaced fracture of the inferior ischial pubic ramus on the left. Mechanical Fall Nondisplaced fracture of inferior ischial pubic ramus fx on Left admitted to med/surg TTWB to LLE, progress to 50% PWB when able to tolerate continue PT/OT, follow up ortho in 2 weeks for xrays and re eval. Per Ortho note she can call [phone] for appt PT/OT to determine needs -pt lives alone with a few steps to enter, possible need for rehab will change narcotic from oxycodone to hydrocodone/APAP due to nausea Dyspepsia/nausea continue daily PPI will give IV pepcid x 1 now change phenergan to zofran monitor Mild rhabdomyolysis secondary to fall CPK 279, now 219 continue gentle hydration repeat labs in a.m. Hypothyroidism euthyroid as of last year's TSH continue levothyroxine Systolic Murmur noted on exam was a 2/6 NEVA RUSB, pt denies knowledge of previous murmur Echo from 2019 revealed mild AV sclerosis, grade 1 DD, preserved EF recommend outpatient follow up echo to eval aortic valve HTN Asymptomatic HTN urgency on presentation per admitting notes pt had discontinued losartan/noncompliant Resumed on admission at a reduced dose of 50mg daily BP continues to remain on high side, could partial be pain/situation as well continue to monitor if remains elevated will increase to prior home dose tomorrow Abnormal Urinalysis on admission, pt asymptomatic, afebrile, wbc wnl today was 18k on admission, likely 2/2 to trauma urine culture negative DVT ppx: SQ Lovenox Dispo: med/surg, continue PT/OT, not yet medically stable given elevated CK, likely ready to d/c in next day or so home with assistance/services vs rehab DNR/DNI PCP: Venus Pt was seen and examined in collaboration with Dr. Cash, please see addendum Patient daughter requesting updates providers. Ms. Naima Smith, contact #[phone]. Admission and Anticipated Discharge Date Admission Date: May 11, 2022 Supervising Physician Co-Signing Physician Notes Pt was seen and examined. Agreed with Ada MEDINA exam, assessment and plan. 71yr old F who has a significant PMH of HTN, hypothyroidism, hx of R BRO who presented to ED on 05/11/22 after sustaining a mechanical fall. CT a/p showed n ondisplaced fracture of the inferior ischial pubic ramus on the left. Continue pain control. Continue PT/OT eval. Consider inpatient rehab. Fall precaution. MD Shreya Subjective Pt was seen and examined in room 387-2. Follow up fall, pelvic fx. She continues to complain of upset stomach and lack of appetite. Initially thought due to pain meds, but has only been taking tylenol. States appetite has really been decreased since September when her passed. Denies f/c/s, chest pain, sob, emesis, diarrhea, dysuria. No BM yet but passing flatus. Has worked with therapy. Review of Systems Review of Systems: All systems reviewed & are unremarkable except as noted in HPI & below Physical Exam Physical Exam: Gen: WD/WN, F, NAD, A&O x3 HEENT: Normocephalic, atraumatic, conjunctivae moist, sclerae anicteric, mucous membranes moist. Lung: Clear to Auscultation bilaterally, no wheezes/rales/rhonchi Heart: Regular rate, regular rhythm, 2/6 NEVA noted RUSB, no rubs, or gallops Abdomen: Soft, NT, ND +BS x 4 Extremities: No edema Skin: Warm, no rash, negative turgor. Results & Data Results & Data ([facility]) Vital Signs (Past 12 Hours) Vital Signs Temp Pulse Resp BP Pulse Ox O2 Del Method 05/13/22 08:21 37.0 C 97 H 16 156/79 H 91 Room Air Laboratory Results Short CBC 05/13/22 Range/Units 08:05 WBC 11.11 H (4.8-10.8) K/ul Hgb 13.9 (12.0-16.0) g/dl Hct 40.3 (34.1-44.9) % Plt Count 156 (130-400) K/uL BMP 05/13/22 08:05 Sodium 138 Potassium 3.8 Chloride 104 Carbon Dioxide 27 BUN 10 Creatinine 0.84 Glucose 101 H Calcium 8.9 Cardiac Enzymes 05/13/22 Range/Units 08:05 Total Creatine Kinase 219 H (26-192) U/L Medications Administered Current Inpatient Medications Acetaminophen (Acetaminophen 325 Mg Tab) 650 mg PO Q4H PRN PRN Reason: Pain or Fever Stop: 06/10/22 22:31 Last Admin: 05/12/22 13:28 Dose: 650 mg Hydrocodone Bitart/Acetaminophen (Hydrocodone/Acetamophen 5/325mg Tab) 1 tab PO Q6H PRN PRN Reason: pain >or = 6/10 Stop: 05/26/22 13:09 Enoxaparin Sodium (Enoxaparin Inj 40 Mg/0.4 Ml Syr) 40 mg SQ QAM CARLA Stop: 06/11/22 08:59 Last Admin: 05/13/22 08:24 Dose: 40 mg Sodium Chloride (Nss 1000ml) 1,000 mls @ 80 mls/hr IV .[id number] CARLA Stop: 05/14/22 00:59 Last Admin: 05/13/22 12:42 Dose: 80 mls/hr Levothyroxine Sodium (Levothyroxine Sodium 88 Mcg Tablet) 88 mcg PO DAILYBB CARLA Stop: 06/11/22 06:29 Last Admin: 05/13/22 06:12 Dose: 88 mcg Losartan Potassium (Losartan Potassium 50 Mg Tab) 50 mg PO HS CARLA Stop: 06/11/22 20:59 Last Admin: 05/12/22 20:41 Dose: 50 mg Melatonin (Melatonin 3 Mg Tab) 3 mg PO HS PRN PRN Reason: Sleep Stop: 06/12/22 01:09 Last Admin: 05/13/22 01:20 Dose: 3 mg Morphine Sulfate (Morphine Sulfate 4 Mg/Ml 1 Ml Carp\Vial) 4 mg IV Q4H PRN PRN Reason: Pain Stop: 05/25/22 20:59 Ondansetron HCl (Ondansetron Inj 2 Mg/Ml 2 Ml Vial) 4 mg IV Q6H CARLA Stop: 06/12/22 10:44 Last Admin: 05/13/22 11:18 Dose: 4 mg Pantoprazole Sodium (Pantoprazole 40 Mg Tab) 40 mg PO DAILY CARLA Stop: 06/11/22 08:59 Last Admin: 05/13/22 08:24 Dose: 40 mg
[2022-05-13] MEDS: LOSARTAN POTASSIUM 50 MG TAB PO SCH (21:33)
[2022-05-14] MEDS: ONDANSETRON INJ 2 MG/ML 2 ML VIAL IV SCH ×2 (05:30→11:56)
[2022-05-14] MEDS: LEVOTHYROXINE SODIUM 88 MCG TABLET PO SCH (06:26)
[2022-05-14] MEDS: PANTOprazole 40 MG TAB PO SCH (08:33)
[2022-05-14] MEDS: ENOXAPARIN INJ 40 MG/0.4 ML SYR SQ SCH (08:33)
[2022-05-14 08:37] LABS: BUN Creatinine Ratio 13.4 (10-20); Calcium 8.5 mg/dl (8.5-10.1); Creatinine Clr Calc Pharmacy 58.3 ml/min; Est GFR (African American) 82.9 ml/min; Est GFR (Non-African American) 71.5 ml/min; Potassium 3.9 mmol/L (3.5-5.1)
[2022-05-14] MEDS: CHOLECALCIFEROL 1,000 UNITS 25 MCG TAB PO SCH (12:00)
--- NOTE | 2022-05-14 15:04 | Hospitalist Progress Note ---
Date of Service May 14, 2022 Assessment & Plan (1) Asymptomatic hypertensive urgency: (2) Pelvic fracture: (3) Rhabdomyolysis: (4) Fall: (5) HTN (hypertension): (6) Hypothyroidism: Plan This is a 71yr old F who has a significant PMH of HTN, hypothyroidism, hx of R BRO who presented to ED on 05/11/22 after sustaining a mechanical fall. CT a/p: Nondisplaced fracture of the inferior ischial pubic ramus on the left. 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 Per Ortho note she can call [phone] for appt Plan to d/c to [facility] Tomorrow Mostly only using Tylenol for pain, doesn't tolerate narcotics Dyspepsia/nausea continue daily PPI will give IV pepcid x 1 now change phenergan to zofran sx have resolved, monitor Mild rhabdomyolysis secondary to fall CPK 279, now 219, 89 today resolved. Vitamin D Deficency vit d level 22 start 1,000 IU cholecalciferol daily Hypothyroidism euthyroid as of last year's TSH continue levothyroxine Systolic Murmur noted on exam was a 2/6 NEVA RUSB, pt denies knowledge of previous murmur Echo from 2019 revealed mild AV sclerosis, grade 1 DD, preserved EF recommend outpatient follow up echo to eval aortic valve HTN Asymptomatic HTN urgency on presentation per admitting notes pt had discontinued losartan/noncompliant Resumed on admission at a reduced dose of 50mg daily BP continues to remain on high side, could partial be pain/situation as well will increase back to home dose of 75mg daily Abnormal Urinalysis on admission, pt asymptomatic, afebrile, wbc wnl today was 18k on admission, likely 2/2 to trauma urine culture negative DVT ppx: SQ Lovenox Dispo: med/surg, continue PT/OT, medically stable for discharge, to be discharged tomorrow to [facility] DNR/DNI PCP: Venus Pt was seen and examined in collaboration with Dr. Amor, please see addendum Admission and Anticipated Discharge Date Admission Date: May 11, 2022 Supervising Physician Co-Signing Physician Notes Attending addendum: The patient was seen and examined in medical floor She has been sitting on a chair without any acute distress and waiting to be discharged She prefers to go to [facility] but there is no reply even after repeated calls The case preparer and liner is trying to get her into [facility] On examination Sitting in a chair without any apparent distress Remains hemodynamically stable Chestclear to auscultation bilaterally HeartS1-S2 Abdomenbenign Extremitiestrace edema bilaterally Her her labs, imaging studies and medications reviewed Remains stable with left inferior pubic rami fracture following fall Medically stable to be transferred Reviewed with assessment and plan as outlined above by Ada Amor Subjective Pt was seen and examined in room 387-2. Follow up fall, pelvic fx. Her stomach is more settled today. Feels her appetite is slightly improving, but still reduced. Feels the IV pepcid helped yesterday. Appetite has been diminished since her passed in September. PT is going well. Plan is to go to rehab tomorrow. Has pain when trying to get out of bed mostly. Review of Systems Review of Systems: All systems reviewed & are unremarkable except as noted in HPI & below Physical Exam Physical Exam: Gen: WD/WN, F, NAD, A&O x3 HEENT: Normocephalic, atraumatic, conjunctivae moist, sclerae anicteric, mucous membranes moist. Lung: Clear to Auscultation bilaterally, no wheezes/rales/rhonchi Heart: Regular rate, regular rhythm, 2/6 NEVA noted RUSB, no rubs, or gallops Abdomen: Soft, NT, ND +BS x 4 Extremities: No edema Skin: Warm, no rash, negative turgor. Results & Data Results & Data ([facility]) Vital Signs (Past 12 Hours) Vital Signs Temp Pulse Resp BP Pulse Ox O2 Del Method 05/14/22 07:03 37.1 C 97 H 18 140/76 93 Room Air Laboratory Results [facility] 05/14/22 07:24 Sodium 136 Potassium 3.9 Chloride 104 Carbon Dioxide 26 BUN 11 Creatinine 0.82 Glucose 91 Calcium 8.5 Cardiac Enzymes 05/14/22 Range/Units 07:24 Total Creatine Kinase 89 (26-192) U/L Medications Administered Current Inpatient Medications Acetaminophen (Acetaminophen 325 Mg Tab) 650 mg PO Q4H PRN PRN Reason: Pain or Fever Stop: 06/10/22 22:31 Last Admin: 05/12/22 13:28 Dose: 650 mg Hydrocodone Bitart/Acetaminophen (Hydrocodone/Acetamophen 5/325mg Tab) 1 tab PO Q6H PRN PRN Reason: pain >or = 6/10 Stop: 05/26/22 13:09 Enoxaparin Sodium (Enoxaparin Inj 40 Mg/0.4 Ml Syr) 40 mg SQ QAM CARLA Stop: 06/11/22 08:59 Last Admin: 05/14/22 08:33 Dose: 40 mg Levothyroxine Sodium (Levothyroxine Sodium 88 Mcg Tablet) 88 mcg PO DAILYBB CARLA Stop: 06/11/22 06:29 Last Admin: 05/14/22 06:26 Dose: 88 mcg Losartan Potassium (Losartan Potassium 50 Mg Tab) 50 mg PO HS CARLA Stop: 06/11/22 20:59 Last Admin: 05/13/22 21:33 Dose: 50 mg Melatonin (Melatonin 3 Mg Tab) 3 mg PO HS PRN PRN Reason: Sleep Stop: 06/12/22 01:09 Last Admin: 05/13/22 21:33 Dose: 3 mg Morphine Sulfate (Morphine Sulfate 4 Mg/Ml 1 Ml Carp\Vial) 4 mg IV Q4H PRN PRN Reason: Pain Stop: 05/25/22 20:59 Ondansetron HCl (Ondansetron Inj 2 Mg/Ml 2 Ml Vial) 4 mg IV Q6H CARLA Stop: 06/12/22 10:44 Last Admin: 05/14/22 11:56 Dose: 4 mg Pantoprazole Sodium (Pantoprazole 40 Mg Tab) 40 mg PO DAILY CARLA Stop: 06/11/22 08:59 Last Admin: 05/14/22 08:33 Dose: 40 mg Vitamin D (Cholecalciferol 1,000 Units 25 Mcg Tab) 1,000 units PO QAM CARLA Stop: 06/13/22 10:59 Last Admin: 05/14/22 12:00 Dose: 1,000 units
[2022-05-14] MEDS ORDERED: ONDANSETRON INJ 2 MG/ML 2 ML VIAL IV PRN (16:40)
[2022-05-14] MEDS ORDERED: LOSARTAN POTASSIUM 25 MG TAB PO SCH (21:00)
[2022-05-14] MEDS: MELATONIN 3 MG TAB PO PRN (21:55)
[2022-05-15] MEDS: LEVOTHYROXINE SODIUM 88 MCG TABLET PO SCH (06:15)
[2022-05-15 07:52] LABS: Creatinine Clr Calc Pharmacy 56.6 ml/min; Est GFR (African American) 80.5 ml/min; Est GFR (Non-African American) 69.4 ml/min
[2022-05-15] MEDS: CHOLECALCIFEROL 1,000 UNITS 25 MCG TAB PO SCH (09:41)
[2022-05-15] MEDS: PANTOprazole 40 MG TAB PO SCH (09:41)
[2022-05-15] MEDS: ENOXAPARIN INJ 40 MG/0.4 ML SYR SQ SCH (09:44)
--- NOTE | 2022-05-15 12:20 | Discharge Summary ---
Date of Service May 15, 2022 Admission HPI Per Admitting Provider History obtained from patient, family, and records. Medical history significant for hypertension, hypothyroidism Lyme disease status post treatment. Patient was outside her home yesterday cleaning the siding when she lost her balance and fell landing on her left hip. No head trauma, no chest pain, no SOB, no syncope. Achy left hip pain. Patient unable to get up but able to crawl back into her home. Patient called EMS and daughter. Patient brought to the ER for evaluation. SBP 190s upon arrival at the ER. Admits to not taking her losartan for some time now because of some dizziness symptoms. 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 Admission Exam Per Admitting Provider GENERAL: Comfortable, pleasant, no respiratory distress SKIN: Normal color, warm HEENT: [place] palpebral conjunctivae, no ptosis, dry buccal mucosa NECK : Supple, no tenderness CHEST : CTA, no tenderness HEART : RRR, no obvious murmurs ABDOMEN: Some distention, minimal suprapubic tenderness EXTREMITIES : Minimal LE swelling, no LE tenderness, no other conspicuous deformities noted NEUROLOGIC : Coherent, no facial asymmetry, gait and stance not assessed Principal Diagnosis Pelvic fracture, rhabdomyolysis Discharge Exam Gen: WD/WN, F, NAD, A&O x3 HEENT: Normocephalic, atraumatic, conjunctivae moist, sclerae anicteric, mucous membranes moist. Lung: Clear to Auscultation bilaterally, no wheezes/rales/rhonchi Heart: Regular rate, regular rhythm, 2/6 NEVA noted RUSB, no rubs, or gallops Abdomen: Soft, NT, ND +BS x 4 Extremities: No edema Skin: Warm, no rash, negative turgor. Discharge Data Allergies Allergy/AdvReac Type Severity Reaction Status Date / Time adhesive tape Allergy Unknown Verified 05/11/22 21:10 Consultations 05/11/22 19:48 ED Decision to Admit Stat 05/11/22 21:19 Consult Orthopedic Surgery Routine Ordered Studies 05/11/22 19:16 CT hip LT wo con Stat CT pelvis wo con Stat Hospital Course (1) Asymptomatic hypertensive urgency: (2) Pelvic fracture: (3) Rhabdomyolysis: (4) Fall: (5) HTN (hypertension): (6) Hypothyroidism: Plan Patient is a 71yr old F who has a significant PMH of HTN, hypothyroidism, hx of R BRO who presented to ED on 05/11/22 after sustaining a mechanical fall. CT abd/pelvis revealed a non-displaced fracture of the inferior ischial pubic ramus on the left. Was evaluated by orthopedic surgery with weight bearing instructions to be toe touch WB to LLE and progress to 50% PWB when able to tolerate. Continue PT/OT and follow up with ortho in 2 weeks for Xrays and evaluation. Mild rhabdomyolysis secondary to fall on admission resolved with IV fluids. Also started on vitamin D supplementation due to deficiency found on lab work during admission. While admitted, patient noted to have systolic murmur on exam. Echo from 2019 revealed mild AV sclerosis, grade 1 DD, preserved EF. Recommend outpatient follow up echo to evaluation of aortic valve. Patient instructed to resume losartan 75 mg daily with significant improvement to blood pressure. Presented with hypertensive emergency and blood pressure improved to 121/76 at time of discharge. Leukocytosis of 18 K noted on admission, likely secondary to trauma. Asymptomatic, urine culture negative. Patient hemodynamically stable at time of discharge to [facility]. Total Time Total Time Spent Total Time Spent (In Minutes): 40 Discharge Plan Discharge Items Patient Disposition: Transfer Intermediate Fac Reason For Visit: HTN,TACHY PELVIC FX Discharge Diagnosis: Pelvic fracture, rhabdomyolysis Activity: Per Instructions section Weightbearing Comment: Per ortho, TTWB to LLE, progress to 50% PWB when able to tolerate Non-emergency contact: Primary Care Provider Call non-emergency contact if: you have any medication questions, your symptoms worsen, your pain is not controlled and you have a fever Follow-up/Referrals: Ned Donovan MD [Primary Care Provider] - Diet: Heart Healthy Add Attending Provider Instructions: You were admitted with hip pain after fall and found to have pelvic fracture. Per orthopedic evaluation, okay with toe touch weight bearing to left lower extremity, progress to 50% PWB when able to tolerate Continue to use Tylenol as needed for pain control Discharge to [facility] today MEDICATION CHANGES: Resume losartan 75mg daily RECOMMENDATIONS FOR FOLLOW-UP: * Follow up with orthopedics in 2 weeks for XRs and evaluation. Please call to schedule follow-up (can call [phone] for appt) * Systolic murmur noted on exam. Echo from 2019 revealed mild AV sclerosis, grade 1 DD, preserved EF. Recommend outpatient follow up echo to evaluate aortic valve OTHER INSTRUCTIONS: Seek medical attention if you have: * temperature above 101 * chest pain or trouble breathing * abdominal pain, nausea, vomiting * diarrhea, dark stools or bloody stools * any unanswered questions or concerns Call 911 if symptoms are severe. Please take good care of yourself. Call if you have any questions or problems. You can reach a [facility] hospitalist on duty at [facility] 24 hours a day by calling [phone]. Elba Fernandez PA-C [facility] Hospitalist Pending Studies at Discharge: No Stand-Alone Forms: My [facility] Skilled Items Patient informed of condition?: Yes DNR: Yes Discharge Level of Care: Skilled Communicable Disease: No Discharge Prognosis: Stable Lines: None Urinary Catheter: No Medications and DC Order Prescriptions: New losartan 25 mg Tablet 75 mg PO HS Qty: 30 0RF cholecalciferol (vitamin D3) [Vitamin D3] 25 mcg (1,000 unit) tablet 1,000 unit PO DAILY 30 Days Qty: 30 0RF Continued ondansetron HCl 4 mg tablet 4 mg PO Q6H PRN (Reason: Nausea) Qty: 30 0RF levothyroxine 88 mcg tablet 88 mcg PO QAM Qty: 30 0RF naproxen sodium [Aleve] 220 mg Tablet 220 mg PO Q12H PRN (Reason: Pain) Qty: 30 0RF omeprazole 20 mg capsule,delayed release(DR/EC) 20 mg PO QAM Qty: 30 0RF artificial tears with lanolin Ointment 1 appln OP Q6H PRN (Reason: dry eyes) Qty: 3.5 0RF Discontinued losartan 50 mg tablet 50 mg PO DAILY Rx Instructions: takes with a 25 to =75mg losartan 25 mg tablet 25 mg PO DAILY Rx Instructions: takes with a 50 to =75mg Discharge Orders: Discharge Order (Routine); Ordered 05/15/22 Ordered By: Elba Fernandez Admission Data Admit Date/Time: 05/11/22 21:17 Attending Provider: Zain Amor Admit Provider: Maximo Bucio Primary Care Provider: Ned Donovan Other Providers: Maximo Bucio ; Quinn Leonardo ; Silvestre Kim ; Maurice Plummer ; Mabel Art ; Esau Robb ; Carol Membreno ; Lucas Romo ; Tristin Chávez ; Steven Lara ; Fernando Yeager ; Shelton Urban ; Edwardo Hector ; Trent Gibbs ; Sacha Dietrich ; Carol Azul ; Ryan Peterson ; Kathleen López ; Sal Fontaine ; Anh Devlin ; Iam Harrington ; Nery Cash ; Elba Fernandez Other Interventions: Discharge Summary Assessment (RN) Last Done: 05/15/22 12:23 Supervising Physician Co-Signing Physician Notes Attending addendum The patient was seen and examined in medical floor She has been stable and denies any symptoms sitting on a chair She has been getting physical therapy and feeling a lot better Waiting to go home from rehab On examination No apparent distress at rest Hemodynamically stable Chest-fair to auscultate bilaterally Heart-S1-S2, regular Abdomen-benign Extremities-negative for any edema Her labs, imaging studies and medications reviewed Agree with assessment and plan as outlined above by CAROL Funez DR
== END 2022-05-15 14:53 | DRG 544 ==
LOC: ED 18:20 → SUATTDRO 21:17 → EDINP 21:17 → 3N 21:30

== ENCOUNTER 2023-05-06 23:46 | Inpatient (IN) ==
[2023-05-07] MEDS ORDERED: KETOROLAC TROMETHAMINE 15 MG/ML VIAL IV STA (00:35)
[2023-05-07] MEDS ORDERED: ONDANSETRON INJ 2 MG/ML 2 ML VIAL IV STA (00:35)
[2023-05-07] MEDS ORDERED: SODIUM CHLORIDE 0.9% 500 ML IV STA (00:35)
--- NOTE | 2023-05-07 00:51 | Emergency Department Note ---
History of Present Illness General Chief complaint: Abdominal Pain Stated complaint: ABD PAIN Time Seen by Provider: 05/07/23 00:14 Source: patient, RN notes reviewed and old records reviewed (A discharge summary from 04/2022.) Mode of arrival: ambulatory Limitations: no limitations History of Present Illness Maximum Pain Intensity: 10 This patient is a 72-year-old female comes in after feeling sick for about 3 wee ks off-and-on. [place] that she could have a tickborne illness such as Lyme she had Lyme in 2020 says she felt very similar. She recalls having something behind her ear 3 weeks ago's but not sure it was a bite or not no rash no fever she started getting nausea today she has had mostly abdominal pain that comes and goes the lower abdomen she had diarrhea 2 to 3 weeks ago which resolved. No chest pain or shortness of breath. No blood or melena stool no dysuria hematuria she also has a very nervous stomach she tells me. Her about a year ago and she has been very anxious and stressed particular the [employer] fair coming up she tells me. No trauma or injury she had some mild intermittent headache that got worse today but is not significant at present. Home Medications Medication Instructions Recorded Confirmed Type artificial tears with lanolin eye 1 appln ophthalmic (eye) Q6H PRN 05/15/22 05/07/23 Rx ointment dry eyes #3.5 grams naproxen sodium 220 mg tablet 220 mg PO Q12H PRN Pain #30 tabs 05/15/22 05/07/23 Rx (Aleve) omeprazole 20 mg capsule,delayed 20 mg PO QAM #30 caps 05/15/22 05/07/23 Rx release ondansetron HCl 4 mg tablet 4 mg PO Q6H PRN Nausea #30 tabs 05/15/22 05/07/23 Rx levothyroxine 88 mcg tablet 88 mcg PO DAILYBB 05/07/23 05/07/23 History losartan 25 mg tablet 25 mg PO HS 05/07/23 05/07/23 History losartan 50 mg tablet 50 mg PO HS 05/07/23 05/07/23 History Allergies Allergy/AdvReac Type Severity Reaction Status Date / Time adhesive tape Allergy Unknown Verified 05/11/22 21:10 Sulfa (Sulfonamide AdvReac nausea and Verified 05/07/23 00:39 Antibiotics) vomiting Past Med/Surg History Medical History HTN (hypertension) Hypothyroidism Lyme disease with bells palsy Psoriasis Surgical History History of hip replacement R, 1999 History of nasal surgery 2/2 to fracture Family History Mother , 72 Stroke brainstem stroke age 72 Social History Smoking Status: Never smoker Hx Alcohol Use: No Hx Substance Use: No Preferred Language: Yoruba Communication Ability: Effective Market Development Trainer Required: No Beliefs That Will Affect Care: None Feels Safe at Home: Yes Assistive Devices: None Review of Systems A total of 10 systems reviewed and were otherwise negative Physical Exam Vital Signs Vital Signs - 24 hr 05/06/23 23:50 05/07/23 00:18 05/07/23 00:50 Temperature 37.4 C Temperature Source Temporal Artery Scan Pulse Rate 121 H 113 H 100 H Pulse Rate from SpO2 Sensor Respiratory Rate 20 20 Respiratory Depth Shallow Blood Pressure 163/92 H Blood Pressure Mean 115 Pulse Oximetry 94 93 Oxygen Delivery Method Room Air Room Air Sepsis Recent Fever Within 48 Hours No Sepsis New/Unexplained Change in Mental Status No Sepsis Action Taken by Nursing No Action Required 05/07/23 01:00 05/07/23 01:32 05/07/23 02:59 Temperature Temperature Source Pulse Rate 96 H 99 H 96 H Pulse Rate from SpO2 Sensor Respiratory Rate 20 22 20 Respiratory Depth Blood Pressure 158/89 H 137/97 Blood Pressure Mean 112 110 Pulse Oximetry 93 96 95 Oxygen Delivery Method Room Air Room Air Room Air Sepsis Recent Fever Within 48 Hours Sepsis New/Unexplained Change in Mental Status Sepsis Action Taken by Nursing 05/07/23 03:00 05/07/23 04:00 Temperature Temperature Source Pulse Rate 96 H 92 H Pulse Rate from SpO2 Sensor 96 H 92 H Respiratory Rate 19 20 Respiratory Depth Blood Pressure 166/91 H 158/87 H Blood Pressure Mean 116 110 Pulse Oximetry 94 93 Oxygen Delivery Method Room Air Room Air Sepsis Recent Fever Within 48 Hours Sepsis New/Unexplained Change in Mental Status Sepsis Action Taken by Nursing General: Well developed well nourished older female who appears nontoxic and in no acute distress, breathing comfortably on room air. Normal speech HEENT: Normal cephalic atraumatic. Pupils are equal round and reactive to light. Sclera anicteric. Extraocular movements are intact. Oropharynx is pink with moist mucous membranes. No swelling of the mouth lips or tongue. Neck: Supple with a midline trachea. No meningeal signs or stiffness, no JVD or bruits. No Stridor. Chest: Clear to auscultation bilaterally. No wheezes or rhonchi. No increased work of breathing. Heart: Regular rate and rhythm without murmurs or gallops. Abdomen: Soft nontender, nondistended without rebound guarding or rigidity. Extremities: No cyanosis clubbing or edema. No calf tenderness or assymetry Spine/Back. Non tender to palpation. No CVA tenderness Skin: Good turgor without rashes. Neurologic exam: Cranial nerves two through 12 are intact. Motor and sensation are intact and symmetrical throughout. Course Administered Medications Discontinued Medications Sodium Chloride (Nss) 500 mls @ 999 mls/hr IV .Q31M STA Stop: 05/07/23 01:05 Last Infusion: 05/07/23 01:28 Dose: 0 mls/hr Documented By: Admin: 05/07/23 00:54 Dose: 999 mls/hr Documented By: AZAR Ioversol (Optiray 320 100ml) 100 ml IV ONCE ONE Stop: 05/07/23 02:54 Last Admin: 05/07/23 02:53 Dose: 93 ml Documented By: OMID Ketorolac Tromethamine (Ketorolac Tromethamine 15 Mg/Ml Vial) 10 mg IV NOW STA Stop: 05/07/23 00:36 Last Admin: 05/07/23 00:54 Dose: 10 mg Documented By: AZAR Ondansetron HCl (Ondansetron Inj 2 Mg/Ml 2 Ml Vial) 4 mg IV NOW STA Stop: 05/07/23 00:36 Last Admin: 05/07/23 00:54 Dose: 4 mg Documented By: AZAR Medical Decision Making Differential Diagnosis Intra-abdominal process, infection, electrolyte or metabolic, Lyme disease, anaplasmosis, tickborne illness, UTI, cardiac disease Medical Records Attestation: I reviewed the patient's medical records. Home Medications Current Medication List: was personally reviewed by me Laboratory Data Attestation: I reviewed the patient's lab results. 05/07/23 00:20 05/07/23 00:20 Lab Results 05/07/23 05/07/23 05/07/23 Range/Units 00:20 00:20 00:20 WBC 18.41 H (4.8-10.8) K/ul RBC 4.81 (4.20-5.40) M/uL Hgb 14.9 (12.0-16.0) g/dl Hct 43.3 (37.0-47.0) % MCV 90.0 (80.0-100.0) fL MCH 31.0 (25.0-34.0) pg MCHC 34.4 (32.0-36.0) g/dL RDW Std Deviation 40.8 (36.4-46.3) fL RDW Coeff of Dilcia 12.3 (11.5-14.5) % Plt Count 248 (130-400) K/uL MPV 12.1 (9.4-12.4) fL Immature Gran % (Auto) 0.3 % Neut % (Auto) 84.6 % Lymph % (Auto) 5.6 % Day % (Auto) 8.5 % Eos % (Auto) 0.5 % Baso % (Auto) 0.5 % Neut # (Auto) 15.58 H (1.40-6.50) K/uL Lymph # (Auto) 1.03 L (1.2-3.4) K/uL Day # (Auto) 1.56 H (0.11-0.59) K/uL Eos # (Auto) 0.09 (0-0.50) K/uL Baso # (Auto) 0.09 (0-0.2) K/uL Immature Gran # (Auto) 0.06 (0.01-0.20) K/uL Sodium (136-145) mmol/L Potassium (3.5-5.1) mmol/L Chloride (98-107) mmol/L Carbon Dioxide (21-32) mmol/L Anion Gap (3-11) BUN (6-23) mg/dl Creatinine (0.6-1.2) mg/dl Est Cr Clr Drug Dosing ml/min Est GFR ( Amer) ml/min Est GFR (Non-Af Amer) ml/min BUN/Creatinine Ratio (10-20) Glucose (70-99(Fasting)) mg/dl Calcium (8.6-10.3) mg/dl Total Bilirubin (0.2-1.0) mg/dl AST (13-39) U/L ALT (7-52) U/L Alkaline Phosphatase (34-104) U/L Troponin I High Sens (0-14) pg/ml Total Protein (6.0-8.3) gm/dl Albumin (3.4-5.0) gm/dl Globulin (2.5-4.0) gm/dl Albumin/Globulin Ratio (0.9-2) Lipase (11-82) U/L Urine Color Urine Appearance (Clear) Urine pH (4.5-7.5) Ur Specific [place] (1.000-1.030) Urine Protein (Negative) Urine Glucose (UA) (Negative) Urine Ketones (Negative) Urine Blood (Negative) Urine Nitrite (Negative) Urine Bilirubin (Negative) Urine Urobilinogen (Negative) Ur Leukocyte Esterase (Negative) Urine WBC (Auto) (0-5) /hpf Urine RBC (Auto) (0-4) /hpf U Hyaline Cast (Auto) (0-5) /lpf U Epithel Cells (Auto) (0-5) /lpf Urine Bacteria (Auto) (Negative) Anaplasma Smear Cancelled See Comment Babesia Smear Cancelled See Comment Lyme Disease IgG Ab Positive A (Negative) Lyme Disease IgM Ab Positive A (Negative) SARS-CoV-2, RNA, NAAT (NEGATIVE) 05/07/23 05/07/23 05/07/23 Range/Units 00:20 02:27 02:58 WBC (4.8-10.8) K/ul RBC (4.20-5.40) M/uL Hgb (12.0-16.0) g/dl Hct (37.0-47.0) % MCV (80.0-100.0) fL MCH (25.0-34.0) pg MCHC (32.0-36.0) g/dL RDW Std Deviation (36.4-46.3) fL RDW Coeff of Dilcia (11.5-14.5) % Plt Count (130-400) K/uL MPV (9.4-12.4) fL Immature Gran % (Auto) % Neut % (Auto) % Lymph % (Auto) % Day % (Auto) % Eos % (Auto) % Baso % (Auto) % Neut # (Auto) (1.40-6.50) K/uL Lymph # (Auto) (1.2-3.4) K/uL Day # (Auto) (0.11-0.59) K/uL Eos # (Auto) (0-0.50) K/uL Baso # (Auto) (0-0.2) K/uL Immature Gran # (Auto) (0.01-0.20) K/uL Sodium 138 (136-145) mmol/L Potassium 3.8 (3.5-5.1) mmol/L Chloride 108 H (98-107) mmol/L Carbon Dioxide 21 (21-32) mmol/L Anion Gap 9 (3-11) BUN 23 (6-23) mg/dl Creatinine 1.02 (0.6-1.2) mg/dl Est Cr Clr Drug Dosing 45.7 ml/min Est GFR ( Amer) 63.2 ml/min Est GFR (Non-Af Amer) 54.5 ml/min BUN/Creatinine Ratio 22.5 H (10-20) Glucose 117 H (70-99(Fasting)) mg/dl Calcium 9.5 (8.6-10.3) mg/dl Total Bilirubin 0.7 (0.2-1.0) mg/dl AST 17 (13-39) U/L ALT 9 (7-52) U/L Alkaline Phosphatase 86 (34-104) U/L Troponin I High Sens 5.6 (0-14) pg/ml Total Protein 7.3 (6.0-8.3) gm/dl Albumin 4.2 (3.4-5.0) gm/dl Globulin 3.1 (2.5-4.0) gm/dl Albumin/Globulin Ratio 1.4 (0.9-2) Lipase 16 (11-82) U/L Urine Color Yellow Urine Appearance Clear (Clear) Urine pH 5.5 (4.5-7.5) Ur Specific [place] 1.021 (1.000-1.030) Urine Protein Negative (Negative) Urine Glucose (UA) Negative (Negative) Urine Ketones 1+ H (Negative) Urine Blood 1+ H (Negative) Urine Nitrite Negative (Negative) Urine Bilirubin Negative (Negative) Urine Urobilinogen Negative (Negative) Ur Leukocyte Esterase Trace H (Negative) Urine WBC (Auto) 1-5 (0-5) /hpf Urine RBC (Auto) 0-4 (0-4) /hpf U Hyaline Cast (Auto) 0 (0-5) /lpf U Epithel Cells (Auto) 5-10 H (0-5) /lpf Urine Bacteria (Auto) Negative (Negative) Anaplasma Smear Babesia Smear Lyme Disease IgG Ab (Negative) Lyme Disease IgM Ab (Negative) SARS-CoV-2, RNA, NAAT NEGATIVE (NEGATIVE) Imaging Data Attestation: I personally reviewed and interpreted this imaging study as follows: My Impression: Chest x-rayno acute infiltrate, failure, pneumothorax CT abdomen pelvisno free air or obstruction. I suspect diverticulitis Radiologist's Impression: Abdomen/Pelvis CT 05/07/23 01:58 Exam(s): CT ABDOMEN + PELVIS With Contrast IV Amt: 93 ml optiray 320 EXAM: CT Abdomen and Pelvis With Intravenous Contrast CLINICAL HISTORY: Reason for exam: lower abd pain, elevated wbc. TECHNIQUE: Axial computed tomography images of the abdomen and pelvis with intravenous contrast. CTDI is 24.14 mGy and DLP is 1117.26 mGy-cm. Automated exposure control was utilized for the study. A dose lowering technique was utilized adhering to the principles of ALARA. CONTRAST: Patient received 93 ml optiray 320 of IV contrast COMPARISON: No relevant prior studies available. FINDINGS: ABDOMEN: Liver: Unremarkable. Gallbladder and bile ducts: Unremarkable. Pancreas: Unremarkable. Spleen: Unremarkable. Adrenals: Unremarkable. Kidneys and ureters: Unremarkable. No obstructing stones. No hydronephrosis. Stomach and bowel: Acute diverticulitis of the sigmoid colon. PELVIS: Appendix: No findings to suggest acute appendicitis. Bladder: Unremarkable. Reproductive: Calcified fibroid in the uterus. ABDOMEN and PELVIS: Intraperitoneal space: Unremarkable. No free air. No significant fluid collection. Bones/joints: Chronic superior endplate height loss at T12. Right hip arthroplasty. Soft tissues: Unremarkable. Vasculature: Unremarkable. Lymph nodes: Unremarkable. IMPRESSION: Acute diverticulitis of the sigmoid colon. No perforation or abscess. Electronically signed by: Nehemiah Pablo MD 05/07/23 04:18 AM ECG Data Attestation: I personally reviewed and interpreted this ECG as follows: Indication: + abdominal pain Rate (beats per minute): 105 Rhythm: + sinus tachycardia ECG Intervals/blocks: + Incomplete right bundle branch block, + Normal QRS, + Normal QT and + Normal OR ECG [place]: + Normal ECG ST segments: + Normal ST segments ECG Findings: no PACs or no PVCs Comparison ECG Date: from (05/12/22) Change: no significant change MDM Narrative This patient comes in described above she has been sick for about 2 to 3 weeks is concerned about tickborne illness. Denies any fever. She has mild lower abdominal discomfort she also has some anxiety she says. IV access was established and she was hydrated with IV normal saline bolus. EKG was obtained. chest x-ray and multiple blood testing was obtained. I did order blood work looking for tickborne illness says. She was reassessed frequently. Her anaplasmosis was negative thus far with the peripheral blood smear. Her white count was elevated 18 which makes me more worried about bacterial or intra- abdominal process rather than a tickborne illness. She has no significant electrolyte or metabolic abnormality . she was hydrated with IV fluids. I did order CT of the abdomen and pelvis to evaluate for possible diverticulitis and other intra-abdominal processes. She had a mild headache earlier but has no headache now she is nontoxic and she does not think she has meningitis or encephalitis. Her Lyme testing did come back positive for both IgG and IgM. She does have a history of Lyme in the past and this could be from a previous infection however with the IgM positive I am concerned about an acute infection as well. She was given Rocephin 2 g IV that would cover both Lyme and diverticulitis at least the initial coverage. The radiologist did read the CAT scan is positive for diverticulitis without abscess or free air. I do think she needs to be admitted/observed given the fact that she does have diverticulitis, high white blood count and possibly Lyme. I have discussed case at length with Dr. Harrell who will see the patient in ER for these measures. Continuous cardiac monitoring: Orders placed in EMR for continuous network intern: Upon my evaluation she was noted to be normal sinus rhythm rate of 90 Impression & Plan Acute diverticulitis, Abdominal pain, Weakness, Acute Lyme disease, Elevated WBC count Discharge Plan Visit Data Chief Complaint: Abdominal Pain Stated Complaint: ABD PAIN ED Provider: Terrence Covarrubias Discharge Problem: Acute diverticulitis, Abdominal pain, Weakness, Acute Lyme disease, Elevated WBC count Forms Stand Alone Forms: Sarah Teralynk Prescriptions Prescriptions: No Action ondansetron HCl 4 mg tablet 4 mg PO Q6H PRN (Reason: Nausea) Qty: 30 0RF naproxen sodium [Aleve] 220 mg Tablet 220 mg PO Q12H PRN (Reason: Pain) Qty: 30 0RF omeprazole 20 mg capsule,delayed release(DR/EC) 20 mg PO QAM Qty: 30 0RF artificial tears with lanolin Ointment 1 appln OP Q6H PRN (Reason: dry eyes) Qty: 3.5 0RF losartan 50 mg Tablet 50 mg PO HS losartan 25 mg tablet 25 mg PO HS levothyroxine 88 mcg tablet 88 mcg PO DAILYBB Referrals Referrals: Ned Donovan MD [Primary Care Provider] - Abdominal pain Qualifiers: Abdominal location: lower abdomen, unspecified Qualified Code(s): R10.30 - Lower abdominal pain, unspecified Elevated WBC count Qualifiers: Leukocytosis type: unspecified Qualified Code(s): D72.829 - Elevated white blood cell count, unspecified
[2023-05-07 01:08] LABS: Basophils # (auto) 0.09 K/uL (0-0.2); Basophils % (auto) 0.5 %; Eosinophils # (auto) 0.09 K/uL (0-0.50); Eosinophils % (auto) 0.5 %; Hematocrit (blood only) 43.3 % (37.0-47.0); Hemoglobin 14.9 g/dl (12.0-16.0); Immature Granulocytes # (auto) 0.06 K/uL (0.01-0.20); Immature Granulocytes % (auto) 0.3 %; Lymphocytes # (auto) 1.03 K/uL (1.2-3.4); Lymphocytes % (auto) 5.6 %; Mean Corpuscular Hgb Conc 34.4 g/dL (32.0-36.0); Mean Platelet Volume 12.1 fL (9.4-12.4); Monocytes # (auto) 1.56 K/uL (0.11-0.59); Monocytes % (auto) 8.5 %; Neutrophils # (auto) 15.58 K/uL (1.40-6.50); Neutrophils % (auto) 84.6 %; Platelet Count 248 K/uL (130-400); RDW Coefficient of Variation 12.3 % (11.5-14.5); RDW Standard Deviation 40.8 fL (36.4-46.3); Red Blood Count 4.81 M/uL (4.20-5.40); White Blood Count 18.41 K/ul (4.8-10.8)
[2023-05-07 01:17] LABS: Albumin Globulin Ratio 1.4 (0.9-2); Albumin Level 4.2 gm/dl (3.4-5.0); BUN Creatinine Ratio 22.5 (10-20); Bilirubin,Total 0.7 mg/dl (0.2-1.0); Calcium 9.5 mg/dl (8.6-10.3); Creatinine Clr Calc Pharmacy 45.7 ml/min; Est GFR (African American) 63.2 ml/min; Est GFR (Non-African American) 54.5 ml/min; Globulin 3.1 gm/dl (2.5-4.0); Potassium 3.8 mmol/L (3.5-5.1); Total Protein 7.3 gm/dl (6.0-8.3)
[2023-05-07 01:22] LABS: Troponin I High Sensitivity 5.6 pg/ml (0-14)
[2023-05-07 02:30] LABS: Lyme Ab IgG w/WB Rflx Positive (Negative); Lyme Ab IgM w/WB Rflx Positive (Negative)
[2023-05-07] MEDS ORDERED: OPTIRAY 320 100ml IV ONE (02:53)
[2023-05-07 03:03] LABS: Appearance Urine Clear (Clear); Bacteria Urine Automated Negative (Negative); Bilirubin Urine Negative (Negative); Blood Urine 1+ (Negative); Cast Urine Automated 0 /lpf (0-5); Color Urine Yellow; Glucose Urine UA Negative (Negative); Ketones Urine 1+ (Negative); Leukocyte Esterase Urine Trace (Negative); Nitrite Urine Negative (Negative); Protein Urine Negative (Negative); RBC Urine Automated 0-4 /hpf (0-4); Specific Gravity Urine 1.021 (1.000-1.030); Urobilinogen Urine Negative (Negative); pH Urine 5.5 (4.5-7.5)
--- NOTE | 2023-05-07 04:19 | CT Scan Report ---
Exam(s): CT ABDOMEN + PELVIS With Contrast IV Amt: 93 ml optiray 320 EXAM: CT Abdomen and Pelvis With Intravenous Contrast CLINICAL HISTORY: Reason for exam: lower abd pain, elevated wbc. TECHNIQUE: Axial computed tomography images of the abdomen and pelvis with intravenous contrast. CTDI is 24.14 mGy and DLP is 1117.26 mGy-cm. Automated exposure control was utilized for the study. A dose lowering technique was utilized adhering to the principles of ALARA. CONTRAST: Patient received 93 ml optiray 320 of IV contrast COMPARISON: No relevant prior studies available. FINDINGS: ABDOMEN: Liver: Unremarkable. Gallbladder and bile ducts: Unremarkable. Pancreas: Unremarkable. Spleen: Unremarkable. Adrenals: Unremarkable. Kidneys and ureters: Unremarkable. No obstructing stones. No hydronephrosis. Stomach and bowel: Acute diverticulitis of the sigmoid colon. PELVIS: Appendix: No findings to suggest acute appendicitis. Bladder: Unremarkable. Reproductive: Calcified fibroid in the uterus. ABDOMEN and PELVIS: Intraperitoneal space: Unremarkable. No free air. No significant fluid collection. Bones/joints: Chronic superior endplate height loss at T12. Right hip arthroplasty. Soft tissues: Unremarkable. Vasculature: Unremarkable. Lymph nodes: Unremarkable. IMPRESSION: Acute diverticulitis of the sigmoid colon. No perforation or abscess. Electronically signed by: Nehemiah Pablo MD 05/07/23 04:18 AM
[2023-05-07] MEDS ORDERED: cefTRIAXone SODIUM 2,000 MG/70 ML BAG IV STA (04:20)
[2023-05-07] MEDS ORDERED: metroNIDAZOLE 500 MG/100 ML BAG IV STA (04:25)
[2023-05-07] MEDS ORDERED: NSS + 20MEQ KCL 20 MEQ/1,000 ML BAG IV ONE (04:29)
--- NOTE | 2023-05-07 05:06 | History & Physical Report ---
Date of Service May 07, 2023 Assessment & Plan (1) Sepsis: Plan: Sepsis Multifactorial Recurrent diverticulitis recurrent Lyme disease HTN, slightly elevated Hypothyroidism euthyroid as of recent outpatient TSH hyperglycemia rule out DM Medical telemetry CS, Ceftriaxone and Flagyl for recurrent diverticulitis (ceftriaxone to cover Lyme disease as well) Clear liquid diet for now GI consult Re: Recurrent diverticulitis check hemoglobin A1c DVT prophylaxis. Lovenox subcu DNR Text document was generated using Andel voice recognition software. It may contain grammatical or spelling errors. Kindly contact undersigned for clarification of any documentation item in question. History of Present Illness Chief Complaint: Abdominal pain Primary Care Provider: Ned Donovan MD History obtained from patient and records. Medical history significant for hypertension, hypothyroidism, diverticulitis, Lyme disease status post treatment. Last confinement April 2022 for pelvic fracture and rhabdomyolysis. 3 weeks ago, patient had abdominal discomfort with transient diarrheal symptoms. Not feeling well similar to Lyme disease and diverticulitis episode from a few years back. Possible tick bite behind left ear 3 weeks ago. No chest pain, no SOB. No fever, some chills. Patient consulted ER for worsening symptoms. IV ceftriaxone administered at the ER. Medical Historyas above No previous colonoscopies. 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 Allergies Allergy/AdvReac Type Severity Reaction Status Date / Time adhesive tape Allergy Unknown Verified 05/11/22 21:10 Sulfa (Sulfonamide AdvReac nausea and Verified 05/07/23 00:39 Antibiotics) vomiting Home Medications Medication Instructions Recorded Confirmed Type artificial tears with lanolin eye 1 appln ophthalmic (eye) Q6H PRN 05/15/22 05/07/23 Rx ointment dry eyes #3.5 grams naproxen sodium 220 mg tablet 220 mg PO Q12H PRN Pain #30 tabs 05/15/22 05/07/23 Rx (Aleve) omeprazole 20 mg capsule,delayed 20 mg PO QAM #30 caps 05/15/22 05/07/23 Rx release ondansetron HCl 4 mg tablet 4 mg PO Q6H PRN Nausea #30 tabs 05/15/22 05/07/23 Rx levothyroxine 88 mcg tablet 88 mcg PO DAILYBB 05/07/23 05/07/23 History losartan 25 mg tablet 25 mg PO HS 05/07/23 05/07/23 History losartan 50 mg tablet 50 mg PO HS 05/07/23 05/07/23 History Past Med/Surg History Medical History HTN (hypertension) Hypothyroidism Lyme disease with bells palsy Psoriasis Surgical History History of hip replacement R, 1999 History of nasal surgery 10/30 to fracture Family History Mother , 72 Stroke brainstem stroke age 72 Social History Smoking Status: Never smoker Hx Alcohol Use: No Hx Substance Use: No Preferred Language: Romanian Communication Ability: Effective Gear Straightener Required: No Beliefs That Will Affect Care: None Current Living Situation: Alone Other Information That Helps Us Care for You: No Feels Safe at Home: Yes Safety Concerns: Feels Safe At This Time Assistive Devices: Glasses Review of Systems Review of Systems: As per HPI, all other systems reviewed and negative Physical Exam Physical Exam: GENERAL: Comfortable, pleasant, slightly anxious, no respiratory distress SKIN: Normal color, warm HEENT: [place] palpebral conjunctivae, no ptosis, dry buccal mucosa NECK : Supple, no tenderness CHEST : CTA, no tenderness HEART : RRR, systolic murmur ABDOMEN: Some distention, left-sided abdominal tenderness EXTREMITIES : no LE swelling, no LE tenderness, no other conspicuous deformities noted NEUROLOGIC : Coherent, no facial asymmetry, gait and stance not assessed Results & Data Results & Data Vital Signs (Past 12 Hours) Vital Signs Temp Pulse Resp BP Pulse Ox O2 Del Method 05/07/23 04:33 93 H 05/07/23 04:00 92 H 20 158/87 H 93 Room Air 05/07/23 03:00 96 H 19 166/91 H 94 Room Air 05/07/23 02:59 96 H 20 95 Room Air 05/07/23 01:32 99 H 22 137/97 96 Room Air 05/07/23 01:00 96 H 20 158/89 H 93 Room Air 05/07/23 00:50 100 H 20 93 Room Air 05/07/23 00:18 113 H 05/06/23 23:50 37.4 C 121 H 20 163/92 H 94 Room Air Laboratory Results Laboratory Results WBC 18.41 K/ul (4.8-10.8) H 05/07/23 00:20 RBC 4.81 M/uL (4.20-5.40) 05/07/23 00:20 Hgb 14.9 g/dl (12.0-16.0) 05/07/23 00:20 Hct 43.3 % (37.0-47.0) 05/07/23 00:20 MCV 90.0 fL (80.0-100.0) 05/07/23 00:20 MCH 31.0 pg (25.0-34.0) 05/07/23 00:20 MCHC 34.4 g/dL (32.0-36.0) 05/07/23 00:20 RDW Std Deviation 40.8 fL (36.4-46.3) 05/07/23 00:20 RDW Coeff of Dilcia 12.3 % (11.5-14.5) 05/07/23 00:20 Plt Count 248 K/uL (130-400) 05/07/23 00:20 MPV 12.1 fL (9.4-12.4) 05/07/23 00:20 Immature Gran % (Auto) 0.3 % 05/07/23 00:20 Neut % (Auto) 84.6 % 05/07/23 00:20 Lymph % (Auto) 5.6 % 05/07/23 00:20 [place] % (Auto) 8.5 % 05/07/23 00:20 Eos % (Auto) 0.5 % 05/07/23 00:20 Baso % (Auto) 0.5 % 05/07/23 00:20 Neut # (Auto) 15.58 K/uL (1.40-6.50) H 05/07/23 00:20 Lymph # (Auto) 1.03 K/uL (1.2-3.4) L 05/07/23 00:20 [place] # (Auto) 1.56 K/uL (0.11-0.59) H 05/07/23 00:20 Eos # (Auto) 0.09 K/uL (0-0.50) 05/07/23 00:20 Baso # (Auto) 0.09 K/uL (0-0.2) 05/07/23 00:20 Immature Gran # (Auto) 0.06 K/uL (0.01-0.20) 05/07/23 00:20 Sodium 138 mmol/L (136-145) 05/07/23 00:20 Potassium 3.8 mmol/L (3.5-5.1) 05/07/23 00:20 Chloride 108 mmol/L (98-107) H 05/07/23 00:20 Carbon Dioxide 21 mmol/L (21-32) 05/07/23 00:20 Anion Gap 9 (3-11) 05/07/23 00:20 BUN 23 mg/dl (6-23) 05/07/23 00:20 Creatinine 1.02 mg/dl (0.6-1.2) 05/07/23 00:20 Est Cr Clr Drug Dosing 45.7 ml/min 05/07/23 00:20 Est GFR ( Amer) 63.2 ml/min 05/07/23 00:20 Est GFR (Non-Af Amer) 54.5 ml/min 05/07/23 00:20 BUN/Creatinine Ratio 22.5 (10-20) H 05/07/23 00:20 Glucose 117 mg/dl (70-99(Fasting)) H 05/07/23 00:20 Calcium 9.5 mg/dl (8.6-10.3) 05/07/23 00:20 Total Bilirubin 0.7 mg/dl (0.2-1.0) 05/07/23 00:20 AST 17 U/L (13-39) 05/07/23 00:20 ALT 9 U/L (7-52) 05/07/23 00:20 Alkaline Phosphatase 86 U/L (34-104) 05/07/23 00:20 Troponin I High Sens 5.6 pg/ml (0-14) 05/07/23 00:20 Total Protein 7.3 gm/dl (6.0-8.3) 05/07/23 00:20 Albumin 4.2 gm/dl (3.4-5.0) 05/07/23 00:20 Globulin 3.1 gm/dl (2.5-4.0) 05/07/23 00:20 Albumin/Globulin Ratio 1.4 (0.9-2) 05/07/23 00:20 Lipase 16 U/L (11-82) 05/07/23 00:20 Urine Color Yellow 05/07/23 02:27 Urine Appearance Clear (Clear) 05/07/23 02:27 Urine pH 5.5 (4.5-7.5) 05/07/23 02:27 Ur Specific [place] 1.021 (1.000-1.030) 05/07/23 02:27 Urine Protein Negative (Negative) 05/07/23 02:27 Urine Glucose (UA) Negative (Negative) 05/07/23 02:27 Urine Ketones 1+ (Negative) H 05/07/23 02:27 Urine Blood 1+ (Negative) H 05/07/23 02:27 Urine Nitrite Negative (Negative) 05/07/23 02:27 Urine Bilirubin Negative (Negative) 05/07/23 02:27 Urine Urobilinogen Negative (Negative) 05/07/23 02:27 Ur Leukocyte Esterase Trace (Negative) H 05/07/23 02:27 Urine WBC (Auto) 1-5 /hpf (0-5) 05/07/23 02:27 Urine RBC (Auto) 0-4 /hpf (0-4) 05/07/23 02:27 U Hyaline Cast (Auto) 0 /lpf (0-5) 05/07/23 02:27 U Epithel Cells (Auto) 5-10 /lpf (0-5) H 05/07/23 02:27 Urine Bacteria (Auto) Negative (Negative) 05/07/23 02:27 Anaplasma Smear Cancelled 05/07/23 00:20 Anaplasma Smear See Comment 05/07/23 00:20 Babesia Smear Cancelled 05/07/23 00:20 Babesia Smear See Comment 05/07/23 00:20 Lyme Disease IgG Ab Positive (Negative) A 05/07/23 00:20 Lyme Disease IgM Ab Positive (Negative) A 05/07/23 00:20 SARS-CoV-2, RNA, NAAT NEGATIVE (NEGATIVE) 05/07/23 02:58 Impressions Abdomen/Pelvis CT 05/07/23 01:58 Exam(s): CT ABDOMEN + PELVIS With Contrast IV Amt: 93 ml optiray 320 EXAM: CT Abdomen and Pelvis With Intravenous Contrast CLINICAL HISTORY: Reason for exam: lower abd pain, elevated wbc. TECHNIQUE: Axial computed tomography images of the abdomen and pelvis with intravenous contrast. CTDI is 24.14 mGy and DLP is 1117.26 mGy-cm. Automated exposure control was utilized for the study. A dose lowering technique was utilized adhering to the principles of ALARA. CONTRAST: Patient received 93 ml optiray 320 of IV contrast COMPARISON: No relevant prior studies available. FINDINGS: ABDOMEN: Liver: Unremarkable. Gallbladder and bile ducts: Unremarkable. Pancreas: Unremarkable. Spleen: Unremarkable. Adrenals: Unremarkable. Kidneys and ureters: Unremarkable. No obstructing stones. No hydronephrosis. Stomach and bowel: Acute diverticulitis of the sigmoid colon. PELVIS: Appendix: No findings to suggest acute appendicitis. Bladder: Unremarkable. Reproductive: Calcified fibroid in the uterus. ABDOMEN and PELVIS: Intraperitoneal space: Unremarkable. No free air. No significant fluid collection. Bones/joints: Chronic superior endplate height loss at T12. Right hip arthroplasty. Soft tissues: Unremarkable. Vasculature: Unremarkable. Lymph nodes: Unremarkable. IMPRESSION: Acute diverticulitis of the sigmoid colon. No perforation or abscess. Electronically signed by: Nehemiah Pablo MD 05/07/23 04:18 AM Diagnostic Findings EKG as per my interpretation : Rate 105, sinus tachycardia, LAD, LAFB, incomplete RBBB, LVH, no ischemia
[2023-05-07 05:09] LABS: Magnesium 2.1 mg/dl (1.7-2.4)
[2023-05-07] MEDS ORDERED: PROMETHAZINE HCL 6.25 MG in SODIUM CHLORIDE 0.9% 50 ML IV PRN (05:11)
[2023-05-07] MEDS ORDERED: traMADol HCL 50 MG TABLET PO PRN (05:11)
[2023-05-07] MEDS ORDERED: MoRPHine SULFATE 4 MG/ML 1 ML CARP\\VIAL IV PRN (05:11)
[2023-05-07] MEDS ORDERED: LORazepam 0.5 MG TAB PO PRN (05:11)
[2023-05-07] MEDS ORDERED: ACETAMINOPHEN 325 MG TAB PO PRN (05:31)
[2023-05-07] MEDS ORDERED: ARTIFICIAL TEARS OP OINT 3.5 GM TUBE OP PRN (05:44)
--- NOTE | 2023-05-07 07:12 | XRay Report ---
XR chest 1V portable CLINICAL HISTORY: weakness TECHNIQUE: Single frontal radiograph of the chest was obtained. Comparison: None available at the time of this dictation. FINDINGS: No lines and tubes are seen. Cardiomegaly is noted. Reticular interstitial opacities are seen. No sheree dence of pleural effusion or pneumothorax. IMPRESSION: No acute chest disease. ACT 112: Negative or not required by law. Electronically signed by: Tobias Sánchez M.D. 05/07/2023 7:11 AM
[2023-05-07] MEDS: LEVOTHYROXINE SODIUM 88 MCG TABLET PO SCH (07:25)
[2023-05-07] MEDS: PANTOprazole 40 MG TAB PO SCH (07:25)
[2023-05-07] MEDS: ENOXAPARIN INJ 40 MG/0.4 ML SYR SQ SCH (07:25)
--- NOTE | 2023-05-07 08:59 | Gastrointestinal Consultation ---
Date of Consultation May 07, 2023 Assessment & Plan (1) Abdominal pain: 72 year old female with change in bowel habits, abd pain, nausea and bloating imaging concerning for diverticulitis without report of perforation or abscess at this time. Agree IV ABX while admitted to be transitioned to PO ABX at time of discharge May continue clear liquid diet today If tolerating, may advance to a low residue diet for the next 3-4 weeks Check stool studies if diarrhea persists OP colonoscopy recommended in about 1 months time Encouraged to ask about medical ride sharing options when scheduling if she was unable to find a ride Will sign off. Thank you for allowing us to participate in the care of this alberto ent. Please call with any acute changes, questions or concerns. Please see addendum below with additional recommendation from my supervising physician. Supervising Physician Co-Signing Physician Notes Attending attestation I have seen, examined this patient, and agree with the findings and above by our mid-level provider JUANPABLO Lewis, with the following additions: Symptoms improved Probable Diverticulitis Plan for Colonoscopy in 4-6 wks Advance diet as tolerated IV to PO abx once taking reliable PO History of Present Illness Reason for Consultation: recurrent diverticulitis Requesting Physician: Guillermo Attending Physician: Burt Li MD History of Present Illness 72 year old female with history of lyme disease, diverticulitis x 2, HTN, hypothyroidism and others below admitted through the ED with abd pain, diarrhea x 3 weeks - GI asked to evaluate for diverticulitis. Pt was seen and evaluated, chart reviewed. Notes about 2-3 weeks ago started with generalized abd pain, bloating and change in BM. Reports loose, watery stools 2-3 times daily. No black or bloody stools. Suggests her pain became more severe yesterday and she developed nausea. CTAP 2022: Acute diverticulitis of the sigmoid colon. No perforation or abscess. CTAP 2019: Focal thickening and mild pericolonic fat stranding within the mid sigmoid colon. This likely represents an acute diverticulitis. No perforation or abscess at this time. However, follow-up colonoscopy recommended once the patient's inflammatory change has resolved to exclude the less likely possibility of underlying colonic lesion. A 1.5 cm intermediate density lesion within the left kidney. This is indeterminate and could represent a hyperdense cyst or renal mass. Follow-up nonemergent renal ultrasound recommended for further evaluation. Has never had a colonoscopy. Refused in the past as she has not wanted to ask a friend for transportation. Allergies Allergy/AdvReac Type Severity Reaction Status Date / Time adhesive tape Allergy Unknown Verified 05/11/22 21:10 Sulfa (Sulfonamide AdvReac nausea and Verified 05/07/23 00:39 Antibiotics) vomiting Home Medications Medication Instructions Recorded Confirmed Type artificial tears with lanolin eye 1 appln ophthalmic (eye) Q6H PRN 05/15/22 05/07/23 Rx ointment dry eyes #3.5 grams naproxen sodium 220 mg tablet 220 mg PO Q12H PRN Pain #30 tabs 05/15/22 05/07/23 Rx (Aleve) omeprazole 20 mg capsule,delayed 20 mg PO QAM #30 caps 05/15/22 05/07/23 Rx release ondansetron HCl 4 mg tablet 4 mg PO Q6H PRN Nausea #30 tabs 05/15/22 05/07/23 Rx levothyroxine 88 mcg tablet 88 mcg PO DAILYBB 05/07/23 05/07/23 History losartan 25 mg tablet 25 mg PO HS 05/07/23 05/07/23 History losartan 50 mg tablet 50 mg PO HS 05/07/23 05/07/23 History Patient History Medical History HTN (hypertension) Hypothyroidism Lyme disease with bells palsy Psoriasis Surgical History History of hip replacement 1999 History of nasal surgery 2/2 to fracture Family History Mother , 72 Stroke brainstem stroke age 72 Social History Smoking Status: Never smoker Hx Alcohol Use: No Hx Substance Use: No Preferred Language: Armenian Communication Ability: Effective Switch Operator Required: No Beliefs That Will Affect Care: None Current Living Situation: Alone Other Information That Helps Us Care for You: No Feels Safe at Home: Yes Safety Concerns: Feels Safe At This Time Assistive Devices: Glasses Review of Systems Review of Systems: All systems reviewed & are unremarkable except as noted in HPI & below Physical Exam Constitutional: WD/WN, vitals as above Respiratory: normal respiratory effort, lungs clear to auscultation Cardiovascular: Rate/Rhythm: regular rate Gastrointestinal (Abdomen): Inspection/Auscultation: normal bowel sounds Percussion/Palpation: + abdomen tender and abdomen soft Skin: no rashes, warm and dry Results & Data Vital Signs (Past 12 Hours) Vital Signs Temp Pulse Pulse Resp BP BP Pulse Ox 05/07/23 07:35 05/07/23 07:00 94 H 27 H 94 05/07/23 07:23 164/94 H 05/07/23 07:05 95 H 05/07/23 06:00 90 18 146/87 H 95 05/07/23 05:00 96 H 23 165/94 H 94 05/07/23 04:33 93 H 05/07/23 04:00 92 H 20 158/87 H 93 05/07/23 03:00 96 H 19 166/91 H 94 05/07/23 02:59 96 H 20 95 05/07/23 01:32 99 H 22 137/97 96 05/07/23 01:00 96 H 20 158/89 H 93 05/07/23 00:50 100 H 20 93 05/07/23 00:18 113 H 05/06/23 23:50 37.4 C 121 H 20 163/92 H 94 O2 Del Method 05/07/23 07:35 Room Air 05/07/23 07:00 05/07/23 07:23 05/07/23 07:05 05/07/23 06:00 Room Air 05/07/23 05:00 Room Air 05/07/23 04:33 05/07/23 04:00 Room Air 05/07/23 03:00 Room Air 05/07/23 02:59 Room Air 05/07/23 01:32 Room Air 05/07/23 01:00 Room Air 05/07/23 00:50 Room Air 05/07/23 00:18 05/06/23 23:50 Room Air Laboratory Results 05/07/23 05/07/23 05/07/23 Range/Units 06:43 06:43 03:32 WBC (4.8-10.8) K/ul RBC (4.20-5.40) M/uL Hgb (12.0-16.0) g/dl Hct (37.0-47.0) % MCV (80.0-100.0) fL MCH (25.0-34.0) pg MCHC (32.0-36.0) g/dL RDW Std Deviation (36.4-46.3) fL RDW Coeff of Dilcia (11.5-14.5) % Plt Count (130-400) K/uL MPV (9.4-12.4) fL Immature Gran % (Auto) % Neut % (Auto) % Lymph % (Auto) % [place] % (Auto) % Eos % (Auto) % Baso % (Auto) % Neut # (Auto) (1.40-6.50) K/uL Lymph # (Auto) (1.2-3.4) K/uL [place] # (Auto) (0.11-0.59) K/uL Eos # (Auto) (0-0.50) K/uL Baso # (Auto) (0-0.2) K/uL Immature Gran # (Auto) (0.01-0.20) K/uL Sodium (136-145) mmol/L Potassium (3.5-5.1) mmol/L Chloride (98-107) mmol/L Carbon Dioxide (21-32) mmol/L Anion Gap (3-11) BUN (6-23) mg/dl Creatinine (0.6-1.2) mg/dl Est Cr Clr Drug Dosing ml/min Est GFR ( Amer) ml/min Est GFR (Non-Af Amer) ml/min BUN/Creatinine Ratio (10-20) Glucose (70-99(Fasting)) mg/dl Estimat Average Glucose Pending Hemoglobin A1c Pending Lactate 0.5 (0.4-2.0) mmol/L Calcium (8.6-10.3) mg/dl Magnesium (1.7-2.4) mg/dl Total Bilirubin (0.2-1.0) mg/dl AST (13-39) U/L ALT (7-52) U/L Alkaline Phosphatase (34-104) U/L Troponin I High Sens (0-14) pg/ml Total Protein (6.0-8.3) gm/dl Albumin (3.4-5.0) gm/dl Globulin (2.5-4.0) gm/dl Albumin/Globulin Ratio (0.9-2) Lipase (11-82) U/L Urine Color Urine Appearance (Clear) Urine pH (4.5-7.5) Ur Specific [place] (1.000-1.030) Urine Protein (Negative) Urine Glucose (UA) (Negative) Urine Ketones (Negative) Urine Blood (Negative) Urine Nitrite (Negative) Urine Bilirubin (Negative) Urine Urobilinogen (Negative) Ur Leukocyte Esterase (Negative) Urine WBC (Auto) (0-5) /hpf Urine RBC (Auto) (0-4) /hpf U Hyaline Cast (Auto) (0-5) /lpf U Epithel Cells (Auto) (0-5) /lpf Urine Bacteria (Auto) (Negative) Anaplasma Smear A. phagocytophilum DNA Babesia Smear Babesia microti DNA PCR Pending Lyme Disease IgG Ab (Negative) Lyme IgG (Western Blot) Lyme IgG 18 kDa Band Lyme IgG 23 kDa Band Lyme IgG 28 kDa Band Lyme IgG 30 kDa Band Lyme IgG 39 kDa Band Lyme IgG 41 kDa Band Lyme IgG 45 kDa Band Lyme IgG 58 kDa Band Lyme IgG 66 kDa Band Lyme IgG 93 kDa Band Lyme IgM Ab (WB) Lyme Disease IgM Ab (Negative) Lyme IgM 23 kDa Band Lyme IgM 39 kDa Band Lyme IgM 41 kDa Band SARS-CoV-2, RNA, NAAT (NEGATIVE) 05/07/23 05/07/23 05/07/23 Range/Units 02:58 02:27 00:36 WBC (4.8-10.8) K/ul RBC (4.20-5.40) M/uL Hgb (12.0-16.0) g/dl Hct (37.0-47.0) % MCV (80.0-100.0) fL MCH (25.0-34.0) pg MCHC (32.0-36.0) g/dL RDW Std Deviation (36.4-46.3) fL RDW Coeff of Dilcia (11.5-14.5) % Plt Count (130-400) K/uL MPV (9.4-12.4) fL Immature Gran % (Auto) % Neut % (Auto) % Lymph % (Auto) % [place] % (Auto) % Eos % (Auto) % Baso % (Auto) % Neut # (Auto) (1.40-6.50) K/uL Lymph # (Auto) (1.2-3.4) K/uL [place] # (Auto) (0.11-0.59) K/uL Eos # (Auto) (0-0.50) K/uL Baso # (Auto) (0-0.2) K/uL Immature Gran # (Auto) (0.01-0.20) K/uL Sodium (136-145) mmol/L Potassium (3.5-5.1) mmol/L Chloride (98-107) mmol/L Carbon Dioxide (21-32) mmol/L Anion Gap (3-11) BUN (6-23) mg/dl Creatinine (0.6-1.2) mg/dl Est Cr Clr Drug Dosing ml/min Est GFR ( Amer) ml/min Est GFR (Non-Af Amer) ml/min BUN/Creatinine Ratio (10-20) Glucose (70-99(Fasting)) mg/dl Estimat Average Glucose Hemoglobin A1c Lactate (0.4-2.0) mmol/L Calcium (8.6-10.3) mg/dl Magnesium (1.7-2.4) mg/dl Total Bilirubin (0.2-1.0) mg/dl AST (13-39) U/L ALT (7-52) U/L Alkaline Phosphatase (34-104) U/L Troponin I High Sens (0-14) pg/ml Total Protein (6.0-8.3) gm/dl Albumin (3.4-5.0) gm/dl Globulin (2.5-4.0) gm/dl Albumin/Globulin Ratio (0.9-2) Lipase (11-82) U/L Urine Color Yellow Urine Appearance Clear (Clear) Urine pH 5.5 (4.5-7.5) Ur Specific [place] 1.021 (1.000-1.030) Urine Protein Negative (Negative) Urine Glucose (UA) Negative (Negative) Urine Ketones 1+ H (Negative) Urine Blood 1+ H (Negative) Urine Nitrite Negative (Negative) Urine Bilirubin Negative (Negative) Urine Urobilinogen Negative (Negative) Ur Leukocyte Esterase Trace H (Negative) Urine WBC (Auto) 1-5 (0-5) /hpf Urine RBC (Auto) 0-4 (0-4) /hpf U Hyaline Cast (Auto) 0 (0-5) /lpf U Epithel Cells (Auto) 5-10 H (0-5) /lpf Urine Bacteria (Auto) Negative (Negative) Anaplasma Smear A. phagocytophilum DNA Pending Babesia Smear Babesia microti DNA PCR Lyme Disease IgG Ab (Negative) Lyme IgG (Western Blot) Lyme IgG 18 kDa Band Lyme IgG 23 kDa Band Lyme IgG 28 kDa Band Lyme IgG 30 kDa Band Lyme IgG 39 kDa Band Lyme IgG 41 kDa Band Lyme IgG 45 kDa Band Lyme IgG 58 kDa Band Lyme IgG 66 kDa Band Lyme IgG 93 kDa Band Lyme IgM Ab (WB) Lyme Disease IgM Ab (Negative) Lyme IgM 23 kDa Band Lyme IgM 39 kDa Band Lyme IgM 41 kDa Band SARS-CoV-2, RNA, NAAT NEGATIVE (NEGATIVE) 05/07/23 05/07/23 05/07/23 Range/Units 00:20 00:20 00:20 WBC 18.41 H (4.8-10.8) K/ul RBC 4.81 (4.20-5.40) M/uL Hgb 14.9 (12.0-16.0) g/dl Hct 43.3 (37.0-47.0) % MCV 90.0 (80.0-100.0) fL MCH 31.0 (25.0-34.0) pg MCHC 34.4 (32.0-36.0) g/dL RDW Std Deviation 40.8 (36.4-46.3) fL RDW Coeff of Dilcia 12.3 (11.5-14.5) % Plt Count 248 (130-400) K/uL MPV 12.1 (9.4-12.4) fL Immature Gran % (Auto) 0.3 % Neut % (Auto) 84.6 % Lymph % (Auto) 5.6 % [place] % (Auto) 8.5 % Eos % (Auto) 0.5 % Baso % (Auto) 0.5 % Neut # (Auto) 15.58 H (1.40-6.50) K/uL Lymph # (Auto) 1.03 L (1.2-3.4) K/uL [place] # (Auto) 1.56 H (0.11-0.59) K/uL Eos # (Auto) 0.09 (0-0.50) K/uL Baso # (Auto) 0.09 (0-0.2) K/uL Immature Gran # (Auto) 0.06 (0.01-0.20) K/uL Sodium 138 (136-145) mmol/L Potassium 3.8 (3.5-5.1) mmol/L Chloride 108 H (98-107) mmol/L Carbon Dioxide 21 (21-32) mmol/L Anion Gap 9 (3-11) BUN 23 (6-23) mg/dl Creatinine 1.02 (0.6-1.2) mg/dl Est Cr Clr Drug Dosing 45.7 ml/min Est GFR ( Amer) 63.2 ml/min Est GFR (Non-Af Amer) 54.5 ml/min BUN/Creatinine Ratio 22.5 H (10-20) Glucose 117 H (70-99(Fasting)) mg/dl Estimat Average Glucose Hemoglobin A1c Lactate (0.4-2.0) mmol/L Calcium 9.5 (8.6-10.3) mg/dl Magnesium 2.1 (1.7-2.4) mg/dl Total Bilirubin 0.7 (0.2-1.0) mg/dl AST 17 (13-39) U/L ALT 9 (7-52) U/L Alkaline Phosphatase 86 (34-104) U/L Troponin I High Sens 5.6 (0-14) pg/ml Total Protein 7.3 (6.0-8.3) gm/dl Albumin 4.2 (3.4-5.0) gm/dl Globulin 3.1 (2.5-4.0) gm/dl Albumin/Globulin Ratio 1.4 (0.9-2) Lipase 16 (11-82) U/L Urine Color Urine Appearance (Clear) Urine pH (4.5-7.5) Ur Specific [place] (1.000-1.030) Urine Protein (Negative) Urine Glucose (UA) (Negative) Urine Ketones (Negative) Urine Blood (Negative) Urine Nitrite (Negative) Urine Bilirubin (Negative) Urine Urobilinogen (Negative) Ur Leukocyte Esterase (Negative) Urine WBC (Auto) (0-5) /hpf Urine RBC (Auto) (0-4) /hpf U Hyaline Cast (Auto) (0-5) /lpf U Epithel Cells (Auto) (0-5) /lpf Urine Bacteria (Auto) (Negative) Anaplasma Smear See Comment A. phagocytophilum DNA Babesia Smear See Comment Babesia microti DNA PCR Lyme Disease IgG Ab (Negative) Lyme IgG (Western Blot) Pending Lyme IgG 18 kDa Band Pending Lyme IgG 23 kDa Band Pending Lyme IgG 28 kDa Band Pending Lyme IgG 30 kDa Band Pending Lyme IgG 39 kDa Band Pending Lyme IgG 41 kDa Band Pending Lyme IgG 45 kDa Band Pending Lyme IgG 58 kDa Band Pending Lyme IgG 66 kDa Band Pending Lyme IgG 93 kDa Band Pending Lyme IgM Ab (WB) Pending Lyme Disease IgM Ab (Negative) Lyme IgM 23 kDa Band Pending Lyme IgM 39 kDa Band Pending Lyme IgM 41 kDa Band Pending SARS-CoV-2, RNA, NAAT (NEGATIVE) 05/07/23 05/07/23 Range/Units 00:20 00:20 WBC (4.8-10.8) K/ul RBC (4.20-5.40) M/uL Hgb (12.0-16.0) g/dl Hct (37.0-47.0) % MCV (80.0-100.0) fL MCH (25.0-34.0) pg MCHC (32.0-36.0) g/dL RDW Std Deviation (36.4-46.3) fL RDW Coeff of Dilcia (11.5-14.5) % Plt Count (130-400) K/uL MPV (9.4-12.4) fL Immature Gran % (Auto) % Neut % (Auto) % Lymph % (Auto) % [place] % (Auto) % Eos % (Auto) % Baso % (Auto) % Neut # (Auto) (1.40-6.50) K/uL Lymph # (Auto) (1.2-3.4) K/uL [place] # (Auto) (0.11-0.59) K/uL Eos # (Auto) (0-0.50) K/uL Baso # (Auto) (0-0.2) K/uL Immature Gran # (Auto) (0.01-0.20) K/uL Sodium (136-145) mmol/L Potassium (3.5-5.1) mmol/L Chloride (98-107) mmol/L Carbon Dioxide (21-32) mmol/L Anion Gap (3-11) BUN (6-23) mg/dl Creatinine (0.6-1.2) mg/dl Est Cr Clr Drug Dosing ml/min Est GFR ( Amer) ml/min Est GFR (Non-Af Amer) ml/min BUN/Creatinine Ratio (10-20) Glucose (70-99(Fasting)) mg/dl Estimat Average Glucose Hemoglobin A1c Lactate (0.4-2.0) mmol/L Calcium (8.6-10.3) mg/dl Magnesium (1.7-2.4) mg/dl Total Bilirubin (0.2-1.0) mg/dl AST (13-39) U/L ALT (7-52) U/L Alkaline Phosphatase (34-104) U/L Troponin I High Sens (0-14) pg/ml Total Protein (6.0-8.3) gm/dl Albumin (3.4-5.0) gm/dl Globulin (2.5-4.0) gm/dl Albumin/Globulin Ratio (0.9-2) Lipase (11-82) U/L Urine Color Urine Appearance (Clear) Urine pH (4.5-7.5) Ur Specific [place] (1.000-1.030) Urine Protein (Negative) Urine Glucose (UA) (Negative) Urine Ketones (Negative) Urine Blood (Negative) Urine Nitrite (Negative) Urine Bilirubin (Negative) Urine Urobilinogen (Negative) Ur Leukocyte Esterase (Negative) Urine WBC (Auto) (0-5) /hpf Urine RBC (Auto) (0-4) /hpf U Hyaline Cast (Auto) (0-5) /lpf U Epithel Cells (Auto) (0-5) /lpf Urine Bacteria (Auto) (Negative) Anaplasma Smear Cancelled A. phagocytophilum DNA Babesia Smear Cancelled Babesia microti DNA PCR Lyme Disease IgG Ab Positive A (Negative) Lyme IgG (Western Blot) Lyme IgG 18 kDa Band Lyme IgG 23 kDa Band Lyme IgG 28 kDa Band Lyme IgG 30 kDa Band Lyme IgG 39 kDa Band Lyme IgG 41 kDa Band Lyme IgG 45 kDa Band Lyme IgG 58 kDa Band Lyme IgG 66 kDa Band Lyme IgG 93 kDa Band Lyme IgM Ab (WB) Lyme Disease IgM Ab Positive A (Negative) Lyme IgM 23 kDa Band Lyme IgM 39 kDa Band Lyme IgM 41 kDa Band SARS-CoV-2, RNA, NAAT (NEGATIVE) (1) Abdominal pain Abdominal location: lower abdomen, unspecified Qualified Code(s): R10.30 - Lower abdominal pain, unspecified
[2023-05-07 09:15] LABS: Estimated Average Glucose 100 mg/dl; Hemoglobin A1C 5.1 % (4.5-5.6)
--- NOTE | 2023-05-07 11:16 | Electrocardiogram Report ---
Test Reason : Blood Pressure : / mmHG Vent. Rate : 105 BPM Atrial Rate : 105 BPM P-R Int : 190 ms QRS Dur : 092 ms QT Int : 330 ms P-R-T Axes : 039 -41 048 degrees QTc Int : 436 ms Sinus tachycardia Left axis deviation Incomplete right bundle branch block Moderate voltage criteria for LVH, may be normal variant Abnormal ECG Confirmed by Tristin Wick ([id number]) on 05/07/2023 11:15:44 AM Referred By: REFERRED SELF Confirmed By:Martín Wick
[2023-05-07] MEDS: metroNIDAZOLE 500 MG/100 ML BAG IV SCH ×2 (14:05→20:22)
--- NOTE | 2023-05-07 15:10 | Hospitalist Progress Note ---
Date of Service May 07, 2023 Assessment & Plan (1) Sepsis: Plan: Sepsis Multifactorial:Recurrent diverticulitis, recurrent Lyme disease -- Blood cultures pending --Serology positive for Lyme disease -- Anaplasma DNA pending --CT ABD:Acute diverticulitis of the sigmoid colon. No perforation or abscess. -- Chest x-ray no acute disease Continue IV Rocephin, Flagyl Pain control as needed Clear liquid diet for now Stool studies pending Appreciate GI input Will need outpatient colonoscopy in 1 month Lyme's disease Follow-up final serology results Continue Rocephin as above HTN Continue losartan Monitor Hypothyroidism Continue levothyroxine Hyperglycemia HbA1c 5.1 DVT Px: Lovenox SQ Code Status DNR/DNI Admission and Anticipated Discharge Date Admission Date: May 07, 2023 Subjective Patient is seen and examined at bedside States having abdominal pain predominantly on lower quadrant Also reports diarrhea Admits to have tick bite few days ago Denies any chest pain, dyspnea, dizziness, nausea, vomiting today No other complaints Review of Systems Review of Systems: All systems reviewed & are unremarkable except as noted in Subjective Physical Exam Physical Exam: Physical Exam: Vitals signs as noted above General Appearance:Moderately built and nourished, no apparent distress Head: normocephalic, Atraumatic Eyes: normal inspection, EOMI Neck: supple, Trachea midline Respiratory/Chest: Normal breath sounds, basal crackles, No accessory muscle use Cardiovascular: S1, S2, + murmur Abdomen/GI:Soft, Mild lower quadrant tender, Bowel sounds present Extremities/Musculoskeletal:normal inspection, no edema Neurologic/Psych:AAOX3, grossly no focal neurological deficits Skin: normal color, warm Results & Data Results & Data Vital Signs (Past 12 Hours) Vital Signs Temp Pulse Pulse Pulse Resp BP BP 05/07/23 11:42 85 05/07/23 12:15 36.8 C 79 20 124/73 05/07/23 07:35 05/07/23 07:00 94 H 27 H 05/07/23 07:23 05/07/23 07:05 95 H 05/07/23 06:00 90 18 05/07/23 05:00 96 H 23 165/94 H 05/07/23 04:33 93 H 05/07/23 04:00 92 H 20 158/87 H BP Pulse Ox O2 Del Method 05/07/23 11:42 05/07/23 12:15 98 Room Air 05/07/23 07:35 Room Air 05/07/23 07:00 94 05/07/23 07:23 164/94 H 05/07/23 07:05 05/07/23 06:00 146/87 H 95 Room Air 05/07/23 05:00 94 Room Air 05/07/23 04:33 05/07/23 04:00 93 Room Air Laboratory Results Short CBC 05/07/23 Range/Units 00:20 WBC 18.41 H (4.8-10.8) K/ul Hgb 14.9 (12.0-16.0) g/dl Hct 43.3 (37.0-47.0) % Plt Count 248 (130-400) K/uL BMP 05/07/23 00:20 Sodium 138 Potassium 3.8 Chloride 108 H Carbon Dioxide 21 BUN 23 Creatinine 1.02 Glucose 117 H Calcium 9.5 Liver Function 05/07/23 Range/Units 00:20 Total Bilirubin 0.7 (0.2-1.0) mg/dl AST 17 (13-39) U/L ALT 9 (7-52) U/L Alkaline Phosphatase 86 (34-104) U/L Albumin 4.2 (3.4-5.0) gm/dl Urine 05/07/23 Range/Units 02:27 Urine Color Yellow Urine Appearance Clear (Clear) Urine pH 5.5 (4.5-7.5) Ur Specific [place] 1.021 (1.000-1.030) Urine Protein Negative (Negative) Urine Glucose (UA) Negative (Negative)
[2023-05-07] MEDS: ADVANCED PROBIOTIC 1250 MG CAPSULE PO SCH (15:22)
[2023-05-07] MEDS: LOSARTAN POTASSIUM 25 MG TAB PO SCH (20:22)
[2023-05-08] MEDS: cefTRIAXone SODIUM 2,000 MG in DEXTROSE 5% 50 ML IV SCH (04:56)
[2023-05-08] MEDS: LEVOTHYROXINE SODIUM 88 MCG TABLET PO SCH (05:45)
[2023-05-08] MEDS: metroNIDAZOLE 500 MG/100 ML BAG IV SCH ×3 (05:46→21:15)
[2023-05-08 07:06] LABS: Basophils # (auto) 0.06 K/uL (0-0.2); Basophils % (auto) 0.7 %; Eosinophils # (auto) 0.26 K/uL (0-0.50); Hematocrit (blood only) 36.9 % (37.0-47.0); Hemoglobin 12.5 g/dl (12.0-16.0); Immature Granulocytes # (auto) 0.02 K/uL (0.01-0.20); Immature Granulocytes % (auto) 0.2 %; Lymphocytes # (auto) 1.28 K/uL (1.2-3.4); Lymphocytes % (auto) 14.6 %; Mean Corpuscular Hemoglobin 30.5 pg (25.0-34.0); Mean Corpuscular Hgb Conc 33.9 g/dL (32.0-36.0); Mean Platelet Volume 12.3 fL (9.4-12.4); Monocytes # (auto) 0.84 K/uL (0.11-0.59); Monocytes % (auto) 9.6 %; Neutrophils # (auto) 6.32 K/uL (1.40-6.50); Neutrophils % (auto) 71.9 %; Platelet Count 179 K/uL (130-400); RDW Coefficient of Variation 12.1 % (11.5-14.5); RDW Standard Deviation 39.8 fL (36.4-46.3); White Blood Count 8.78 K/ul (4.8-10.8)
[2023-05-08 07:21] LABS: BUN Creatinine Ratio 11.5 (10-20); Calcium 8.7 mg/dl (8.6-10.3); Creatinine Clr Calc Pharmacy 59.8 ml/min; Est GFR (African American) 87.4 ml/min; Est GFR (Non-African American) 75.4 ml/min; Potassium 3.7 mmol/L (3.5-5.1)
[2023-05-08] MEDS: ENOXAPARIN INJ 40 MG/0.4 ML SYR SQ SCH (07:31)
[2023-05-08] MEDS: ADVANCED PROBIOTIC 1250 MG CAPSULE PO SCH (07:32)
[2023-05-08] MEDS: PANTOprazole 40 MG TAB PO SCH (07:32)
[2023-05-08 12:07] LABS: Adenovirus F 40/41 PCR Not Detected (NotDetected); Astrovirus PCR Not Detected (NotDetected); Campylobacter PCR Not Detected (NotDetected); Cryptosporidium PCR Not Detected (NotDetected); Cyclospora cayetanensis PCR Not Detected (NotDetected); Entamoeba histolytica PCR Not Detected (NotDetected); Enteroaggregative E.coli(EAEC) Not Detected (NotDetected); Enteropathogenic E.coli (EPEC) Not Detected (NotDetected); Enterotoxigenic E.coli (ETEC) Not Detected (NotDetected); Giardia lamblia PCR Not Detected (NotDetected); Norovirus GI/GII PCR Not Detected (NotDetected); Plesiomonas shigelloides PCR Not Detected (NotDetected); Rotavirus A PCR Not Detected (NotDetected); Salmonella PCR Not Detected (NotDetected); Sapovirus PCR Not Detected (NotDetected); Shiga-like Toxin E.coli (STEC) Not Detected (NotDetected); Shigella/Enteroinvasive E.coli Not Detected (NotDetected); Vibrio cholerae PCR Not Detected (NotDetected); Vibrio species PCR Not Detected (NotDetected); Yersinia enterocolitica PCR Not Detected (NotDetected)
[2023-05-08] MEDS ORDERED: LOPERAMIDE HCL 2 MG CAP PO PRN (16:57)
--- NOTE | 2023-05-08 16:58 | Hospitalist Progress Note ---
Date of Service May 08, 2023 Assessment & Plan (1) Sepsis: Plan: Sepsis Multifactorial:Recurrent diverticulitis, recurrent Lyme disease -- Blood cultures pending --Serology positive for Lyme disease -- Anaplasma DNA pending --CT ABD:Acute diverticulitis of the sigmoid colon. No perforation or abscess. -- Chest x-ray no acute disease -- Stool studies negative Continue IV Rocephin, Flagyl Pain control as needed Appreciate GI input Will need outpatient colonoscopy in 1 month Advance to low fiber diet Likely plan to discharge tomorrow if stable Lyme's disease Follow-up final serology results Continue Rocephin as above HTN Continue losartan Monitor Hypothyroidism Continue levothyroxine Hyperglycemia HbA1c 5.1 DVT Px: Lovenox SQ Code Status DNR/DNI Admission and Anticipated Discharge Date Admission Date: May 07, 2023 Subjective Patient is seen and examined at bedside Abdominal pain resolved Still has some loose BM Denies any nausea, vomiting, chest pain, dizziness States feeling much better today Negative for discharged Review of Systems Review of Systems: All systems reviewed & are unremarkable except as noted in Subjective Physical Exam Physical Exam: Physical Exam: Vitals signs as noted above General Appearance:Moderately built and nourished, no apparent distress Head: normocephalic, Atraumatic Eyes: normal inspection, EOMI Neck: supple, Trachea midline Respiratory/Chest: Normal breath sounds, basal crackles, No accessory muscle use Cardiovascular: S1, S2, + murmur Abdomen/GI:Soft, non tender, Bowel sounds present Extremities/Musculoskeletal:normal inspection, no edema Neurologic/Psych:AAOX3, grossly no focal neurological deficits Skin: normal color, warm Results & Data Results & Data Vital Signs (Past 12 Hours) Vital Signs Temp Pulse Pulse Resp BP Pulse Ox O2 Del Method 05/08/23 15:37 93 H 05/08/23 15:35 36.6 C 85 20 131/68 96 Room Air 05/08/23 09:34 71 05/08/23 07:25 36.7 C 75 18 128/74 95 Room Air Laboratory Results Short CBC 05/08/23 Range/Units 06:01 WBC 8.78 (4.8-10.8) K/ul Hgb 12.5 (12.0-16.0) g/dl Hct 36.9 L (37.0-47.0) % Plt Count 179 (130-400) K/uL BMP 05/08/23 06:01 Sodium 137 Potassium 3.7 Chloride 107 Carbon Dioxide 26 BUN 9 Creatinine 0.78 Glucose 87 Calcium 8.7
[2023-05-08] MEDS: LOSARTAN POTASSIUM 25 MG TAB PO SCH (21:10)
[2023-05-09 01:42] LABS: 18KDIGG Band NON-REACTIVE; 23KDIGG Band NON-REACTIVE; 23KDIGM Band REACTIVE; 28KDIGG Band NON-REACTIVE; 30KDIGG Band NON-REACTIVE; 39KDIGG Band NON-REACTIVE; 39KDIGM Band NON-REACTIVE; 41KDIGG Band NON-REACTIVE; 41KDIGM Band NON-REACTIVE; 45KDIGG Band NON-REACTIVE; 58KDIGG Band NON-REACTIVE; 66KDIGG Band NON-REACTIVE; 93KDIGG Band NON-REACTIVE; Lyme Antibodies, WB IgG NEGATIVE (NEGATIVE); Lyme Antibodies, WB IgM NEGATIVE (NEGATIVE)
[2023-05-09] MEDS: cefTRIAXone SODIUM 2,000 MG in DEXTROSE 5% 50 ML IV SCH (05:21)
[2023-05-09] MEDS: metroNIDAZOLE 500 MG/100 ML BAG IV SCH (06:06)
[2023-05-09] MEDS: LEVOTHYROXINE SODIUM 88 MCG TABLET PO SCH (06:06)
[2023-05-09 06:45] LABS: Hematocrit (blood only) 35.4 % (37.0-47.0); Mean Corpuscular Hemoglobin 30.5 pg (25.0-34.0); Mean Corpuscular Hgb Conc 33.9 g/dL (32.0-36.0); Mean Corpuscular Volume 89.8 fL (80.0-100.0); Mean Platelet Volume 11.7 fL (9.4-12.4); Platelet Count 201 K/uL (130-400); RDW Standard Deviation 39.6 fL (36.4-46.3); Red Blood Count 3.94 M/uL (4.20-5.40)
[2023-05-09 06:59] LABS: Calcium 8.6 mg/dl (8.6-10.3); Creatinine Clr Calc Pharmacy 46.5 ml/min; Est GFR (African American) 64.7 ml/min; Est GFR (Non-African American) 55.8 ml/min; Magnesium 1.8 mg/dl (1.7-2.4); Potassium 3.7 mmol/L (3.5-5.1)
[2023-05-09] MEDS: PANTOprazole 40 MG TAB PO SCH (07:25)
[2023-05-09] MEDS: ADVANCED PROBIOTIC 1250 MG CAPSULE PO SCH (07:25)
[2023-05-09] MEDS: ENOXAPARIN INJ 40 MG/0.4 ML SYR SQ SCH (07:26)
--- NOTE | 2023-05-09 11:47 | Hospitalist Progress Note ---
Date of Service May 09, 2023 Assessment & Plan (1) Sepsis: Plan: Sepsis Multifactorial:Recurrent diverticulitis, recurrent Lyme disease -- Blood cultures pending --Serology positive for Lyme disease -- Anaplasma DNA pending --CT ABD:Acute diverticulitis of the sigmoid colon. No perforation or abscess. -- Chest x-ray no acute disease -- Stool studies negative Continue IV Rocephin, Flagyl Pain control as needed Appreciate GI input Will need outpatient colonoscopy in 1 month Tolerated low fiber diet Plan to discharge on p.o. antibiotics to complete the course Lyme's disease Follow-up final serology results Continue Rocephin as above Given intolerance to doxycycline previously, plan to discharge on cefuroxime HTN Continue losartan Will increase losartan dose to 100 mg daily for better BP control Monitor Hypothyroidism Continue levothyroxine Hyperglycemia HbA1c 5.1 DVT Px: Lovenox SQ Code Status DNR/DNI Disposition Home Admission and Anticipated Discharge Date Admission Date: May 07, 2023 Subjective Patient is seen and examined at bedside States feeling well today No recurrence of abdominal pain Has a loose BM today Blood pressure slightly elevated Denies any nausea, vomiting, chest pain, dizziness Plan to be discharged home today Physical Exam Physical Exam: Physical Exam: Vitals signs as noted above General Appearance:Moderately built and nourished, no apparent distress Head: normocephalic, Atraumatic Eyes: normal inspection, EOMI Neck: supple, Trachea midline Respiratory/Chest: Normal breath sounds, CTA, No accessory muscle use Cardiovascular: S1, S2, + murmur Abdomen/GI:Soft, non tender, Bowel sounds present Extremities/Musculoskeletal:normal inspection, no edema Neurologic/Psych:AAOX3, grossly no focal neurological deficits Skin: normal color, warm Results & Data Results & Data Vital Signs (Past 12 Hours) Vital Signs Temp Pulse Pulse Resp BP BP Pulse Ox 05/09/23 07:28 36.6 C 64 19 160/93 H 96 05/09/23 07:18 73 05/09/23 02:51 36.9 C 79 18 105/57 L 94 O2 Del Method 05/09/23 07:28 Room Air 05/09/23 07:18 05/09/23 02:51 Room Air Laboratory Results Short CBC 05/09/23 Range/Units 05:57 WBC 6.00 (4.8-10.8) K/ul Hgb 12.0 (12.0-16.0) g/dl Hct 35.4 L (37.0-47.0) % Plt Count 201 (130-400) K/uL BMP 05/09/23 05:57 Sodium 141 Potassium 3.7 Chloride 111 H Carbon Dioxide 26 BUN 16 Creatinine 1.00 Glucose 98 Calcium 8.6
--- NOTE | 2023-05-09 12:06 | Discharge Summary ---
Date of Service May 09, 2023 Admission HPI Per Admitting Provider History obtained from patient and records. Medical history significant for hypertension, hypothyroidism, diverticulitis, Lyme disease status post treatment. Last confinement April 2022 for pelvic fracture and rhabdomyolysis. 3 weeks ago, patient had abdominal discomfort with transient diarrheal symptoms. Not feeling well similar to Lyme disease and diverticulitis episode from a few years back. Possible tick bite behind left ear 3 weeks ago. No chest pain, no SOB. No fever, some chills. Patient consulted ER for worsening symptoms. IV ceftriaxone administered at the ER. Medical Historyas above No previous colonoscopies. 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 Admission Exam Per Admitting Provider GENERAL: Comfortable, pleasant, slightly anxious, no respiratory distress SKIN: Normal color, warm HEENT: [place] palpebral conjunctivae, no ptosis, dry buccal mucosa NECK : Supple, no tenderness CHEST : CTA, no tenderness HEART : RRR, systolic murmur ABDOMEN: Some distention, left-sided abdominal tenderness EXTREMITIES : no LE swelling, no LE tenderness, no other conspicuous deformities noted NEUROLOGIC : Coherent, no facial asymmetry, gait and stance not assessed Principal Diagnosis Sepsis Recurrent diverticulitis Lyme disease Hypertension Discharge Data Allergies Allergy/AdvReac Type Severity Reaction Status Date / Time adhesive tape Allergy Unknown Verified 05/11/22 21:10 Sulfa (Sulfonamide AdvReac nausea and Verified 05/07/23 00:39 Antibiotics) vomiting Consultations 05/07/23 04:24 ED Decision to Admit Stat 05/07/23 05:31 Consult Gastroenterology Routine Procedures Performed Laboratory Results WBC 6.00 K/ul (4.8-10.8) 05/09/23 05:57 RBC 3.94 M/uL (4.20-5.40) L 05/09/23 05:57 Hgb 12.0 g/dl (12.0-16.0) 05/09/23 05:57 Hct 35.4 % (37.0-47.0) L 05/09/23 05:57 MCV 89.8 fL (80.0-100.0) 05/09/23 05:57 MCH 30.5 pg (25.0-34.0) 05/09/23 05:57 MCHC 33.9 g/dL (32.0-36.0) 05/09/23 05:57 RDW Std Deviation 39.6 fL (36.4-46.3) 05/09/23 05:57 RDW Coeff of Dilcia 12.0 % (11.5-14.5) 05/09/23 05:57 Plt Count 201 K/uL (130-400) 05/09/23 05:57 MPV 11.7 fL (9.4-12.4) 05/09/23 05:57 Immature Gran % (Auto) 0.2 % 05/08/23 06:01 Neut % (Auto) 71.9 % 05/08/23 06:01 Lymph % (Auto) 14.6 % 05/08/23 06:01 [place] % (Auto) 9.6 % 05/08/23 06:01 Eos % (Auto) 3.0 % 05/08/23 06:01 Baso % (Auto) 0.7 % 05/08/23 06:01 Neut # (Auto) 6.32 K/uL (1.40-6.50) 05/08/23 06:01 Lymph # (Auto) 1.28 K/uL (1.2-3.4) 05/08/23 06:01 [place] # (Auto) 0.84 K/uL (0.11-0.59) H 05/08/23 06:01 Eos # (Auto) 0.26 K/uL (0-0.50) 05/08/23 06:01 Baso # (Auto) 0.06 K/uL (0-0.2) 05/08/23 06:01 Immature Gran # (Auto) 0.02 K/uL (0.01-0.20) 05/08/23 06:01 Sodium 141 mmol/L (136-145) 05/09/23 05:57 Potassium 3.7 mmol/L (3.5-5.1) 05/09/23 05:57 Chloride 111 mmol/L (98-107) H 05/09/23 05:57 Carbon Dioxide 26 mmol/L (21-32) 05/09/23 05:57 Anion Gap 4 (3-11) 05/09/23 05:57 BUN 16 mg/dl (6-23) 05/09/23 05:57 Creatinine 1.00 mg/dl (0.6-1.2) 05/09/23 05:57 Est Cr Clr Drug Dosing 46.5 ml/min 05/09/23 05:57 Est GFR ( Amer) 64.7 ml/min 05/09/23 05:57 Est GFR (Non-Af Amer) 55.8 ml/min 05/09/23 05:57 BUN/Creatinine Ratio 16.0 (10-20) 05/09/23 05:57 Glucose 98 mg/dl (70-99(Fasting)) 05/09/23 05:57 Estimat Average Glucose 100 mg/dl 05/07/23 06:43 Hemoglobin A1c 5.1 % (4.5-5.6) 05/07/23 06:43 Lactate 0.5 mmol/L (0.4-2.0) 05/07/23 06:43 Calcium 8.6 mg/dl (8.6-10.3) 05/09/23 05:57 Magnesium 1.8 mg/dl (1.7-2.4) 05/09/23 05:57 Total Bilirubin 0.7 mg/dl (0.2-1.0) 05/07/23 00:20 AST 17 U/L (13-39) 05/07/23 00:20 ALT 9 U/L (7-52) 05/07/23 00:20 Alkaline Phosphatase 86 U/L (34-104) 05/07/23 00:20 Troponin I High Sens 5.6 pg/ml (0-14) 05/07/23 00:20 Total Protein 7.3 gm/dl (6.0-8.3) 05/07/23 00:20 Albumin 4.2 gm/dl (3.4-5.0) 05/07/23 00:20 Globulin 3.1 gm/dl (2.5-4.0) 05/07/23 00:20 Albumin/Globulin Ratio 1.4 (0.9-2) 05/07/23 00:20 Lipase 16 U/L (11-82) 05/07/23 00:20 Urine Color Yellow 05/07/23 02:27 Urine Appearance Clear (Clear) 05/07/23 02:27 Urine pH 5.5 (4.5-7.5) 05/07/23 02:27 Ur Specific [place] 1.021 (1.000-1.030) 05/07/23 02:27 Urine Protein Negative (Negative) 05/07/23 02:27 Urine Glucose (UA) Negative (Negative) 05/07/23 02:27 Urine Ketones 1+ (Negative) H 05/07/23 02:27 Urine Blood 1+ (Negative) H 05/07/23 02:27 Urine Nitrite Negative (Negative) 05/07/23 02:27 Urine Bilirubin Negative (Negative) 05/07/23 02:27 Urine Urobilinogen Negative (Negative) 05/07/23 02:27 Ur Leukocyte Esterase Trace (Negative) H 05/07/23 02:27 Urine WBC (Auto) 1-5 /hpf (0-5) 05/07/23 02:27 Urine RBC (Auto) 0-4 /hpf (0-4) 05/07/23 02:27 U Hyaline Cast (Auto) 0 /lpf (0-5) 05/07/23 02:27 U Epithel Cells (Auto) 5-10 /lpf (0-5) H 05/07/23 02:27 Urine Bacteria (Auto) Negative (Negative) 05/07/23 02:27 Stl C. cayetanensis PCR Not Detected (NotDetected) 05/08/23 Unknown Stool Rotavirus A PCR Not Detected (NotDetected) 05/08/23 Unknown Stl Adenov F 40/41 PCR Not Detected (NotDetected) 05/08/23 Unknown Stool Astrovirus (PCR) Not Detected (NotDetected) 05/08/23 Unknown Stool Campylobacter PCR Not Detected (NotDetected) 05/08/23 Unknown Stl C. diff Tox B Gene Negative Cdiff Gene (Neg) 05/08/23 Unknown Stool Cryptosporidium PCR Not Detected (NotDetected) 05/08/23 Unknown Stl E.coli Shiga Tox PCR Not Detected (NotDetected) 05/08/23 Unknown Stl Enterotoxigenic E PCR Not Detected (NotDetected) 05/08/23 Unknown Stool EPEC (PCR) Not Detected (NotDetected) 05/08/23 Unknown Stool EAEC (PCR) Not Detected (NotDetected) 05/08/23 Unknown Stl E. histolytica PCR Not Detected (NotDetected) 05/08/23 Unknown Stool Giardia Lamblia PCR Not Detected (NotDetected) 05/08/23 Unknown Stool Salmonella PCR Not Detected (NotDetected) 05/08/23 Unknown Stool Sapovirus (PCR) Not Detected (NotDetected) 05/08/23 Unknown Stl P. shigelloides PCR Not Detected (NotDetected) 05/08/23 Unknown Stl Shigella/EIEC PCR Not Detected (NotDetected) 05/08/[address].enterocolitica PCR Not Detected (NotDetected) 05/08/23 Unknown Stool Vibrio (PCR) Not Detected (NotDetected) 05/08/23 Unknown Stl Vibrio cholerae PCR Not Detected (NotDetected) 05/08/23 Unknown Stl Norovirus GI/GII PCR Not Detected (NotDetected) 05/08/23 Unknown Anaplasma Smear Cancelled 05/07/23 00:20 Anaplasma Smear See Comment 05/07/23 00:20 Babesia Smear Cancelled 05/07/23 00:20 Babesia Smear See Comment 05/07/23 00:20 Lyme Disease IgG Ab Positive (Negative) A 05/07/23 00:20 Lyme IgG (Western Blot) NEGATIVE (NEGATIVE) 05/07/23 03:32 Lyme IgG 18 kDa Band NON-REACTIVE 05/07/23 03:32 Lyme IgG 23 kDa Band NON-REACTIVE 05/07/23 03:32 Lyme IgG 28 kDa Band NON-REACTIVE 05/07/23 03:32 Lyme IgG 30 kDa Band NON-REACTIVE 05/07/23 03:32 Lyme IgG 39 kDa Band NON-REACTIVE 05/07/23 03:32 Lyme IgG 41 kDa Band NON-REACTIVE 05/07/23 03:32 Lyme IgG 45 kDa Band NON-REACTIVE 05/07/23 03:32 Lyme IgG 58 kDa Band NON-REACTIVE 05/07/23 03:32 Lyme IgG 66 kDa Band NON-REACTIVE 05/07/23 03:32 Lyme IgG 93 kDa Band NON-REACTIVE 05/07/23 03:32 Lyme IgM Ab (WB) NEGATIVE (NEGATIVE) 05/07/23 03:32 Lyme Disease IgM Ab Positive (Negative) A 05/07/23 00:20 Lyme IgM 23 kDa Band REACTIVE A 05/07/23 03:32 Lyme IgM 39 kDa Band NON-REACTIVE 05/07/23 03:32 Lyme IgM 41 kDa Band NON-REACTIVE 05/07/23 03:32 SARS-CoV-2, RNA, NAAT NEGATIVE (NEGATIVE) 05/07/23 02:58 Impressions Chest X-Ray 05/07/23 00:36 XR chest 1V portable CLINICAL HISTORY: weakness TECHNIQUE: Single frontal radiograph of the chest was obtained. Comparison: None available at the time of this dictation. FINDINGS: No lines and tubes are seen. Cardiomegaly is noted. Reticular interstitial opacities are seen. No evidence of pleural effusion or pneumothorax. IMPRESSION: No acute chest disease. ACT 112: Negative or not required by law. Electronically signed by: Tobias Sánchez M.D. 05/07/2023 7:11 AM Abdomen/Pelvis CT 05/07/23 01:58 Exam(s): CT ABDOMEN + PELVIS With Contrast IV Amt: 93 ml optiray 320 EXAM: CT Abdomen and Pelvis With Intravenous Contrast CLINICAL HISTORY: Reason for exam: lower abd pain, elevated wbc. TECHNIQUE: Axial computed tomography images of the abdomen and pelvis with intravenous contrast. CTDI is 24.14 mGy and DLP is 1117.26 mGy-cm. Automated exposure control was utilized for the study. A dose lowering technique was utilized adhering to the principles of ALARA. CONTRAST: Patient received 93 ml optiray 320 of IV contrast COMPARISON: No relevant prior studies available. FINDINGS: ABDOMEN: Liver: Unremarkable. Gallbladder and bile ducts: Unremarkable. Pancreas: Unremarkable. Spleen: Unremarkable. Adrenals: Unremarkable. Kidneys and ureters: Unremarkable. No obstructing stones. No hydronephrosis. Stomach and bowel: Acute diverticulitis of the sigmoid colon. PELVIS: Appendix: No findings to suggest acute appendicitis. Bladder: Unremarkable. Reproductive: Calcified fibroid in the uterus. ABDOMEN and PELVIS: Intraperitoneal space: Unremarkable. No free air. No significant fluid collection. Bones/joints: Chronic superior endplate height loss at T12. Right hip arthroplasty. Soft tissues: Unremarkable. Vasculature: Unremarkable. Lymph nodes: Unremarkable. IMPRESSION: Acute diverticulitis of the sigmoid colon. No perforation or abscess. Electronically signed by: Nehemiah Pablo MD 05/07/23 04:18 AM Ordered Studies 05/07/23 01:58 CT abd pelvis IV con only Stat Hospital Course (1) Sepsis: Sepsis Multifactorial:Recurrent diverticulitis, recurrent Lyme disease -- Blood cultures pending --Serology positive for Lyme disease -- Anaplasma DNA pending --CT ABD:Acute diverticulitis of the sigmoid colon. No perforation or abscess. -- Chest x-ray no acute disease -- Stool studies negative Continue IV Rocephin, Flagyl Pain control as needed Appreciate GI input Will need outpatient colonoscopy in 1 month Tolerated low fiber diet Plan to discharge on p.o. antibiotics to complete the course Lyme's disease Follow-up final serology results Continue Rocephin as above Given intolerance to doxycycline previously, plan to discharge on cefuroxime HTN Continue losartan Will increase losartan dose to 100 mg daily for better BP control Monitor Hypothyroidism Continue levothyroxine Hyperglycemia HbA1c 5.1 DVT Px: Lovenox SQ Code Status DNR/DNI Disposition Home Total Time Total Time Spent Total Time Spent (In Minutes): 56 minutes Discharge Plan Discharge Items Patient Disposition: Home - Self-Care Reason For Visit: SEPSIS Discharge Diagnosis: Sepsis Recurrent diverticulitis Lyme disease Hypertension Activity: Per Instructions section Exercise/Sports: Gradually increase as tolerated Non-emergency contact: Primary Care Provider and Tabular Typist Call non-emergency contact if: you have any medication questions, your symptoms worsen, your pain is concerning for you and you have a fever Follow-up/Referrals: Ned Donovan MD [Primary Care Provider] - Diet: Low Fiber Addtl Attending Provider Instructions: Follow-up with your primary care physician in 1 week --- Final blood cultures are pending at the time of discharge. Follow-up with your physician for results. -- Complete cefuroxime, Flagyl dose as prescribed. -- Increase your losartan dose to 100 mg daily for better control of blood pressure. Monitor blood pressure regularly at home. Discuss with your physician for further recommendations Seek immediate medical attention if your symptoms reoccur or worsen Please take all medications as instructed on discharge list below. Please call if you have any questions or problems. You can reach a [facility] hospitalist on duty at [facility] 24 hours a day by calling [phone] Pending Studies at Discharge: Yes Studies:: Blood Cultures Stand-Alone Forms: My [facility] [place], Smoking Cessation Medications and DC Order Prescriptions: New Advanced Probiotic 625 mg (10 billion cell) Capsule 2 cap PO DAILY Qty: 60 0RF cefuroxime axetil 500 mg tablet 500 mg PO BID 11 Days Qty: 22 0RF Rx Instructions: Start taking from 05/10/23 metronidazole 500 mg tablet 500 mg PO TID 11 Days Qty: 33 0RF Rx Instructions: Start taking from 05/09/23 Continued ondansetron HCl 4 mg tablet 4 mg PO Q6H PRN (Reason: Nausea) Qty: 30 0RF naproxen sodium [Aleve] 220 mg Tablet 220 mg PO Q12H PRN (Reason: Pain) Qty: 30 0RF omeprazole 20 mg capsule,delayed release(DR/EC) 20 mg PO QAM Qty: 30 0RF artificial tears with lanolin Ointment 1 appln OP Q6H PRN (Reason: dry eyes) Qty: 3.5 0RF levothyroxine 88 mcg tablet 88 mcg PO DAILYBB Changed losartan 50 mg Tablet 100 mg PO HS Qty: 60 0RF Discontinued losartan 25 mg tablet 25 mg PO HS Discharge Orders: Discharge Order (Routine); Ordered 05/09/23 Ordered By: Burt Li Admission Data Admit Date/Time: 05/07/23 05:09 Attending Provider: Butr Li Admit Provider: Maximo Bucio Primary Care Provider: Ned Donovan Other Providers: Maximo Bucio ; Alonzo Cifuentes ; Edison Prince ; Betty Gunderson ; Odalys Bob ; Olena Gaytan ; Charla Thomas ; Odin,Quentin ; Bob Crespo ; Franco Peters ; Vince Solano ; Tee Triana ; Valentina Manzano ; Mara Gu ; Josefina Stephen ; Nilam Caceres ; Porfirio Patton ; Maurice Maguire ; Cristhian Ross ; Sandy Meehan ; Yolanda Barnes Jr
[2023-05-10 20:18] LABS: Babesia microti DNA Not Detected (Not Detected)
== END 2023-05-09 14:05 | disposition home or self-care (01) | DRG 872 ==
LOC: ED 23:46 → SUATTDRO 05-07 05:09 → EDINP 05-07 05:09 → 2N 05-07 05:33